=== PATIENT | male | born 1950 | race Caucasian/White ===

== ENCOUNTER 2019-11-11 13:25 | Emergency (ER) | payer OTHER ==
[~2019-11-11] VITALS: Ht 177.8 cm; Wt 125.2 kg
[~2019-11-11 13:25] MED LIST: ALBU2.5V5 NEB; ALBU90OI6 INH; ATORVASTATIN CA40 MG PO; B-12 COMPL1000 MCG/1 INJ; BUDE6HFA INH; FURO40 PO; IBU600 MG PO; Lisinopril2.5 MG PO; MONT10T PO; OMEPRAZOLE20 MG PO; POTCHL10ER PO; TAMS.4ER PO; TIOT18 INH; TRAM50 PO; Vitamin D2000 UNIT PO
== END 2019-11-11 16:22 | disposition home or self-care (01) ==
LOC: ER 13:25
DX: M54.5 Low back pain (principal); J44.9 Chronic obstructive pulmonary disease, unspecified; E78.5 Hyperlipidemia, unspecified; K21.9 Gastro-esophageal reflux disease without esophagitis; Z87.891 Personal history of nicotine dependence; Z79.899 Other long term (current) drug therapy; V89.2XXA Person injured in unspecified motor-vehicle accident, traffic, initial encounter
CPT/HCPCS: 72080; 99284-25

== ENCOUNTER 2020-08-17 12:25 | Inpatient (IN) | payer OTHER, MEDICARE ==
[~2020-08-17] VITALS: Ht 180.3 cm; Wt 126.2 kg
[~2020-08-17 12:25] MED LIST changes: -ALBU2.5V5 NEB; -ALBU90OI6 INH; -B-12 COMPL1000 MCG/1 INJ; -BUDE6HFA INH; -FURO40 PO; -POTCHL10ER PO
[2020-08-17 13:37] LABS: BASOPHILS ABSOLUTE AUTO 0.03 K/mm3 (0.00-0.23); BASOPHILS PERCENT AUTO 0 % (0-2); EOSINOPHILS ABSOLUTE AUTO 0.01 K/mm3 (0.00-0.68); EOSINOPHILS PERCENT AUTO 0 % (0-6); Hematocrit 39.9 % (37.0-53.0); Hemoglobin 12.8 g/dL (13.5-17.5); IMMATURE GRAN ABSOLUTE AUTO 0.05 K/mm3 (0.00-0.10); IMMATURE GRAN PERCENT AUTO 0 % (0-1); LYMPHOCYTES PERCENT AUTO 3 % (21-46); MONOCYTES ABSOLUTE AUTO 0.79 K/mm3 (0.16-1.47); MONOCYTES PERCENT AUTO 5 % (4-13); Mean Corpuscular HGB 29.8 pg (26.0-34.0); Mean Corpuscular HGB Conc 32.1 g/dL (31.5-36.5); Mean Corpuscular Volume 93 fL (80-100); Mean Platelet Volume 8.8 fL (9.1-12.4); NEUTROPHILS ABSOLUTE AUTO 13.34 K/mm3 (1.96-9.15); NEUTROPHILS PERCENT AUTO 91 % (41-73); Platelet Count 199 K/mm3 (150-400); RDW Coefficient Variation 13.3 % (11.7-14.2); RDW Standard Deviation 45.6 fL (35.1-46.3); White Blood Cell Count 14.72 K/mm3 (4.00-11.30)
[2020-08-17 13:56] LABS: Alanine Aminotransfer (ALT/SGP 22 U/L (12-78); Albumin, Blood 3.4 g/dL (3.4-5.0); Albumin/Globulin Ratio 1.1 (0.8-1.8); Alk Phos 114 U/L (50-136); Anion Gap 5 mmol/L (6-16); Aspartate Aminotrans (AST/SGOT 21 U/L (12-37); Bilirubin, Total 0.9 mg/dL (0.1-1.0); Blood Urea Nitrogen 15 mg/dL (8-24); Bun/Creatinine Ratio 18.8 (12.0-20.0); CO2, Blood 32 mmol/L (21-32); Calcium, Blood 8.6 mg/dL (8.5-10.1); Chloride, Blood 109 mmol/L (98-108); Globulin, Blood 3.1 g/dL (2.2-4.0); Glomerular Filtration Rate >60 (60-); Glucose, Blood 142 mg/dL (70-99); Potassium, Blood 3.4 mmol/L (3.5-5.5); Sodium, Blood 146 mmol/L (136-145); Total Protein, Blood 6.5 g/dL (6.4-8.2); Troponin I <0.015 ng/mL (0.000-0.040)
[2020-08-17 14:25] LABS: Source, Urine Clean Catch
[2020-08-17 14:33] LABS: Appearance, Urine Clear (Clear); Blood, Urine Neg (Neg); Color, Urine Amber (P-Yellow); Glucose Qualitative, Urine Neg (Neg); Ketones, Urine 1+ (Neg); Leukocyte Esterase, Urine 1+ (Neg); Nitrite, Urine Neg (Neg); Protein, Urine 1+ (Neg); Urobilinogen, Urine 2+ (Normal)
[2020-08-17 14:34] LABS: Bilirubin, Urine 1+ (Neg)
[2020-08-17 14:48] LABS: Mucus Heavy (0-Heavy); Squamous Epithelial Cells Few /hpf (Few)
[2020-08-17 14:49] LABS: Bacteria Few /hpf; Red Blood Cells, Urine 0-2 /hpf (0-2)
[2020-08-17 15:24] LABS: Influenza A, PCR Negative (NEGATIVE); Influenza B, PCR Negative (NEGATIVE); Resp Syncytial Virus, PCR Negative (NEGATIVE); SARS-Cov-2 (COVID-19) PCR, MMC Negative (NEGATIVE)
[2020-08-17] MEDS ORDERED: ALBU2.5V5 NEB (17:12)
[2020-08-17] MEDS ORDERED: ALBU90OI6 INH (17:56)
[2020-08-17] MEDS ORDERED: SYMBICORT 160-4.6 GM INH (17:57)
[2020-08-17] MEDS ORDERED: ATOR40TA PO (17:58)
[2020-08-17] MEDS ORDERED: VITAMIN D31000 UNI1 PO (17:58)
[2020-08-17] MEDS ORDERED: FURO40 PO (17:58)
[2020-08-17] MEDS ORDERED: OMEP20ER PO (17:59)
[2020-08-17] MEDS ORDERED: POTA10T PO (17:59)
[2020-08-17] MEDS ORDERED: Lisinopril2.5 MG PO (18:00)
[2020-08-17] MEDS ORDERED: MULVITA PO (18:00)
[2020-08-17] MEDS ORDERED: Sanctura20 MG PO (18:01)
[2020-08-17] MEDS ORDERED: B-12 COMPL1000 MCG/2 IM (18:24)
[2020-08-17] MEDS ORDERED: FEROSUL325 M1 PO (18:25)
[2020-08-17] MEDS ORDERED: MONT10T PO (18:25)
[2020-08-17] MEDS ORDERED: TIOT18 INH (18:26)
[2020-08-17] MEDS ORDERED: TAMS.4ER PO (18:26)
--- NOTE | 2020-08-17 18:35 | NUR ---
PT PLEASANT COOP A/O. TALKING. PAIN IN RT LEG, HEADACHE. WAS MEDIATED IN ER. H/R REG, NO MURMER NOTED. NO TELE. LUNGS CLEAR WITH LIGHT CRACKLES LOW LEFT. ON 2L O2. BT X4 LAST BM THIS AM. NORMAL. VOIDS URINAL. BSC IF NEEDS. CALL LITE IN REACH, CALLS APPROP BROUGHT WATER AND URINAL.
--- NOTE | 2020-08-18 04:35 | NUR ---
QUALITY ASSURANCE MONITOR BODY SUMMARY A/OX4. PT C/O PAIN X1 R/T RECENT FALL AT HOME, MEDICATED PER EMAR. COMPLIANT WITH CPAP, CONT. BIOX IN PLACE. APPEARED TO SLEEP T/O NIGHT. NO ACUTE CHANGES AT THIS TIME. BED IN LOWEST POSITON WITH CALL LIGHT IN REACH. WILL CONTINUE TO MONITOR AND REPORT TO ONCOMING RN.
[2020-08-18 05:14] LABS: BASOPHILS ABSOLUTE AUTO 0.03 K/mm3 (0.00-0.23); BASOPHILS PERCENT AUTO 0 % (0-2); EOSINOPHILS ABSOLUTE AUTO 0.07 K/mm3 (0.00-0.68); EOSINOPHILS PERCENT AUTO 1 % (0-6); Hematocrit 35.4 % (37.0-53.0); Hemoglobin 11.3 g/dL (13.5-17.5); IMMATURE GRAN ABSOLUTE AUTO 0.07 K/mm3 (0.00-0.10); IMMATURE GRAN PERCENT AUTO 1 % (0-1); LYMPHOCYTES ABSOLUTE AUTO 1.09 K/mm3 (0.84-5.20); LYMPHOCYTES PERCENT AUTO 8 % (21-46); MONOCYTES ABSOLUTE AUTO 0.87 K/mm3 (0.16-1.47); MONOCYTES PERCENT AUTO 7 % (4-13); Mean Corpuscular HGB 30.1 pg (26.0-34.0); Mean Corpuscular HGB Conc 31.9 g/dL (31.5-36.5); Mean Corpuscular Volume 94 fL (80-100); Mean Platelet Volume 9.1 fL (9.1-12.4); NEUTROPHILS ABSOLUTE AUTO 11.25 K/mm3 (1.96-9.15); NEUTROPHILS PERCENT AUTO 84 % (41-73); Platelet Count 163 K/mm3 (150-400); RDW Coefficient Variation 13.8 % (11.7-14.2); RDW Standard Deviation 46.8 fL (35.1-46.3); Red Blood Cell Count 3.76 M/mm3 (4.30-5.90); White Blood Cell Count 13.38 K/mm3 (4.00-11.30)
[2020-08-18 05:39] LABS: Alanine Aminotransfer (ALT/SGP 16 U/L (12-78); Albumin, Blood 2.9 g/dL (3.4-5.0); Alk Phos 94 U/L (50-136); Anion Gap 3 mmol/L (6-16); Aspartate Aminotrans (AST/SGOT 14 U/L (12-37); Bilirubin, Total 0.9 mg/dL (0.1-1.0); Blood Urea Nitrogen 12 mg/dL (8-24); Bun/Creatinine Ratio 17.9 (12.0-20.0); CO2, Blood 31 mmol/L (21-32); Calcium, Blood 8.5 mg/dL (8.5-10.1); Chloride, Blood 111 mmol/L (98-108); Creatinine, Blood 0.67 mg/dL (0.60-1.20); Globulin, Blood 2.8 g/dL (2.2-4.0); Glomerular Filtration Rate >60 (60-); Glucose, Blood 121 mg/dL (70-99); Potassium, Blood 3.4 mmol/L (3.5-5.5); Sodium, Blood 145 mmol/L (136-145); Total Protein, Blood 5.7 g/dL (6.4-8.2)
--- NOTE | 2020-08-18 08:00 | NUR ---
DR COLON IN TO SEE PT. STATES WILL REVIEW AND OBTAIN MEDS PER MED REC. PT ASKED FOR HIS PAIN MEDS.
--- NOTE | 2020-08-18 10:00 | NUR ---
PT PLEASANT COOP A/P TALKATIVE. 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 ALSO . H/R REG, NO MURMER NOTED. NO TELE. LUNGS CLEAR ON RT AND DIM LOW LEFT. ON 2L O2. RESP EASY, UNLABORED. BT X4 LAST BM YEST. VOIDS URINAL. STATES WEAK ON RT NINO AND PAIN IN LEG AT KNEE. DOES HAVE NEUROPATHY. SPOKE TO DR COLON. NO NEW CONCERNS. BED IN LOW POSITIOIN, CALL LITE IN REACH, CALLS APPROP
--- NOTE | 2020-08-18 11:48 | NUR ---
PT STATES TAKES TRAMADOL FOR PAIN. UNSURE OF DOSE. WILL HAVE CHECK AND CALL ME.
--- NOTE | 2020-08-18 18:14 | NUR ---
PT PLEASANT TALKATIVE. A/O X3 TODAY AND KIDDING STAFF. CAME IN TO SEE HIM TODAY. NO NEW CONCERNS TODAY. PT RECEIVING ABX. PER EMAR. SITTING ON EDGE OF BED MUCH OF DAY. DID START HIS NORMAL MEDS TODAY. BED IN LOW POSITION, CALL LITE IN REACH, CALLS APPROP
--- NOTE | 2020-08-19 04:51 | NUR ---
SUMMARY: A/OX4, CALLS APPROPRIATELY AND PT IS PLEASANT/COOPERATIVE W/CARE. HE'S RECIEVING IV ABX FOR PNM W/LS DIMINISHED T/O AND SPO2 WNL ON 3L O2 PER HOME DOSE. PT TOLERATED CPAP AT HS W/CONTIUOUS BIOX INTACT. HE'S USING HIS URINAL TO VOID AND IS ABLE TO USE BSC W/1P PIVOT T/F ASSIST. HE REMAINS VERY WEAK IN BLE'S AND REPORTS R.KNEE PAIN, TRAMADOL RECIEVED AT HS FOR IMPROVED PAIN CONTROL. HE SLEPT INTERMITTENTLY T/O NOCTE W/O COMPLAINTS. NO ACUTE CHANGES, VSS/AFEBRILE. WCTM AND REPORT TO DAY RN.
[2020-08-19] MEDS ORDERED: ACET325 PO (12:11)
[2020-08-19] MEDS ORDERED: CEFP200 PO (12:12)
[2020-08-19] MEDS ORDERED: Florastor250 MG PO (12:13)
--- NOTE | 2020-08-19 15:30 | NUR ---
DISCHARGE SUMMARY RAY LEFT W/ FAMILY BY WC. PIV REMOVED AFTER GETTING LAST DOSE OF AZITHROMAX. TACHYCARDIC ON TELE, GOT EKG PRIOR TO LEAVING SHOWING SINUS TACH. UNABLE TO MAKE FU APPT AT [facility] DESPITE ATTEMPTS, PT VERBALIZED UNDERSTANDING FOR NEED FOR F/U APPT AND HE STATES HE WILL CONTINUE TO TRY TO CALL THEM. R KNEE VERY PAINFUL FOR PT, RECEIVED TRAMADOL X1 DOSE. HOME O2 EVAL SHOWED PT DIDN'T NEED HOME OXYGEN. MEDS FAXED TO [facility], WENT OVER PAPERWORK WITH PT.
== END 2020-08-19 15:26 | disposition home or self-care (01) | DRG 871 ==
LOC: ER 12:25 → ERHOLD 14:29 → MEDS 18:12 → ENPENDDIS 08-19 11:59 → MEDS 08-19 15:26
PROVIDERS: Emergency Medicine; ADMIT Hospitalist
DX: A41.9 Sepsis, unspecified organism (principal); J96.01 Acute respiratory failure with hypoxia; J18.9 Pneumonia, unspecified organism; J44.0 Chronic obstructive pulmonary disease with (acute) lower respiratory infection; I50.32 Chronic diastolic (congestive) heart failure; Z20.828 Contact with and (suspected) exposure to other viral communicable diseases; I25.10 Atherosclerotic heart disease of native coronary artery without angina pectoris; D51.9 Vitamin B12 deficiency anemia, unspecified; Z98.84 Bariatric surgery status; Z87.891 Personal history of nicotine dependence; N40.0 Benign prostatic hyperplasia without lower urinary tract symptoms; K21.9 Gastro-esophageal reflux disease without esophagitis; E66.9 Obesity, unspecified; Z68.38 Body mass index [BMI] 38.0-38.9, adult
CPT/HCPCS: 0241U; 36415; 71045; 80053; 81001; 83605; 83690; 84145; 84484; 85025; 87040; 87070; 87086; 87205; 93005; 93010; 94640; 94660; 94760; 94761; 94762; 96365; 96366; 96367; 96375; 99285-25; A9270; A9270-GY; J0456; J0696; J2405; J7030; J7050

== ENCOUNTER 2020-10-04 13:11 | Day surgery (SDC) | payer OTHER ==
[~2020-10-04] VITALS: Ht 177.8 cm; Wt 129.8 kg
[~2020-10-04 13:11] MED LIST changes: +ACET325 PO; +ALBU2.5V5 NEB; +ALBU90OI6 INH; +ATOR40TA PO; +B-12 COMPL1000 MCG/2 IM; +CEFP200 PO; +FEROSUL325 M1 PO; +FURO40 PO; +Hair, Skin & N1 EACH PO; +OMEP20ER PO; +POTA10T PO; +SYMBICORT 160-4.6 GM INH; +Sanctura20 MG PO; +VITAMIN D31000 UNI1 PO
== END 2020-10-04 18:31 | disposition home or self-care (01) ==
LOC: ORSCSDS 13:11
PROVIDERS: Internal Medicine Gastroenterology
PROC: 0DBK8ZX Excision of Ascending Colon, Via Natural or Artificial Opening Endoscopic, Diagnostic (ICD-10-PCS; principal; 2020-10-04 14:30)
PROC: 0DBL8ZX Excision of Transverse Colon, Via Natural or Artificial Opening Endoscopic, Diagnostic (ICD-10-PCS; principal; 2020-10-04 14:30)
PROC: 0DBN8ZX Excision of Sigmoid Colon, Via Natural or Artificial Opening Endoscopic, Diagnostic (ICD-10-PCS; principal; 2020-10-04 14:30)
PROC: 0DBH8ZX Excision of Cecum, Via Natural or Artificial Opening Endoscopic, Diagnostic (ICD-10-PCS; principal; 2020-10-04 14:30)
PROC: 0DBM8ZX Excision of Descending Colon, Via Natural or Artificial Opening Endoscopic, Diagnostic (ICD-10-PCS; principal; 2020-10-04 14:30)
DX: Z86.010 Personal history of colon polyps (principal); D12.3 Benign neoplasm of transverse colon; D12.5 Benign neoplasm of sigmoid colon; D12.0 Benign neoplasm of cecum; D12.2 Benign neoplasm of ascending colon; D12.4 Benign neoplasm of descending colon; K57.30 Diverticulosis of large intestine without perforation or abscess without bleeding; K64.8 Other hemorrhoids; G47.33 Obstructive sleep apnea (adult) (pediatric); I10 Essential (primary) hypertension; J44.9 Chronic obstructive pulmonary disease, unspecified; Z87.891 Personal history of nicotine dependence; K21.9 Gastro-esophageal reflux disease without esophagitis; E78.00 Pure hypercholesterolemia, unspecified; Z79.899 Other long term (current) drug therapy
CPT/HCPCS: 82947; 88305; A9270; J2250; J2405; J2704; J2765; J7040; J7120

== ENCOUNTER 2021-02-20 14:17 | Observation (INO) | payer OTHER ==
[~2021-02-20] VITALS: Ht 177.8 cm; Wt 128.7 kg
[2021-02-20 14:55] LABS: BASOPHILS ABSOLUTE AUTO 0.02 K/mm3 (0.00-0.23); BASOPHILS PERCENT AUTO 0 % (0-2); EOSINOPHILS ABSOLUTE AUTO 0.09 K/mm3 (0.00-0.68); EOSINOPHILS PERCENT AUTO 1 % (0-6); IMMATURE GRAN ABSOLUTE AUTO 0.03 K/mm3 (0.00-0.10); IMMATURE GRAN PERCENT AUTO 0 % (0-1); LYMPHOCYTES ABSOLUTE AUTO 1.59 K/mm3 (0.84-5.20); LYMPHOCYTES PERCENT AUTO 17 % (21-46); MONOCYTES PERCENT AUTO 5 % (4-13); Mean Corpuscular HGB 28.8 pg (26.0-34.0); Mean Corpuscular HGB Conc 32.5 g/dL (31.5-36.5); Mean Corpuscular Volume 89 fL (80-100); Mean Platelet Volume 8.8 fL (9.1-12.4); NEUTROPHILS PERCENT AUTO 76 % (41-73); Platelet Count 252 K/mm3 (150-400); RDW Coefficient Variation 14.4 % (11.7-14.2); RDW Standard Deviation 46.3 fL (35.1-46.3); Red Blood Cell Count 4.52 M/mm3 (4.30-5.90); White Blood Cell Count 9.43 K/mm3 (4.00-11.30)
[2021-02-20 15:15] LABS: Alanine Aminotransfer (ALT/SGP 26 U/L (12-78); Albumin, Blood 3.5 g/dL (3.4-5.0); Albumin/Globulin Ratio 1.1 (0.8-1.8); Alk Phos 113 U/L (50-136); Anion Gap 5 mmol/L (6-16); Aspartate Aminotrans (AST/SGOT 15 U/L (12-37); Bilirubin, Total 0.7 mg/dL (0.1-1.0); Blood Urea Nitrogen 17 mg/dL (8-24); Bun/Creatinine Ratio 20.9 (12.0-20.0); CO2, Blood 27 mmol/L (21-32); Calcium, Blood 8.3 mg/dL (8.5-10.1); Chloride, Blood 104 mmol/L (98-108); Creatinine, Blood 0.81 mg/dL (0.60-1.20); Globulin, Blood 3.2 g/dL (2.2-4.0); Glomerular Filtration Rate >60 (60-); Glucose, Blood 107 mg/dL (70-99); HDL Cholesterol 31 mg/dL (>39); Potassium, Blood 3.6 mmol/L (3.5-5.5); Sodium, Blood 136 mmol/L (136-145); Total Protein, Blood 6.7 g/dL (6.4-8.2); Troponin I <0.015 ng/mL (0.000-0.040)
[2021-02-20] MEDS ORDERED: TRAM50 PO (16:27)
[2021-02-20] MEDS ORDERED: Florastor250 MG PO (16:28)
[2021-02-20] MEDS ORDERED: IBUP600 PO (16:28)
[2021-02-20] MEDS ORDERED: MIRALAX17 GM PO (16:29)
[2021-02-20] MEDS ORDERED: CALCIUM CARBON650 MG PO (16:30)
[2021-02-20] MEDS ORDERED: ALEN10 PO (16:31)
[2021-02-20] MEDS ORDERED: CAPSAICIN 0.075% TOP (16:32)
[2021-02-20 18:53] LABS: CPK Creatine Kinase 84 U/L (39-308)
--- NOTE | 2021-02-21 04:02 | NUR ---
SHIFT SUMMARY PT ER ADMIT THIS SHIFT FOR CHEST PAIN. PT HAS NO COMPLAINTS OF CHEST PAIN SINCE ARRIVING TO THE UNIT. PT IS NSR ON TELE. R/U ON RA, NO COMPLAINTS OF N/V. VITALS ARE STABLE. OBS STATUS TO R/O ACS. NO ACUTE CHANGES SINCE ADMISSION. PT A/OX4, INDEPENDENT IN THE ROOM. BED IN LOWEST POSITION, CALL LIGHT WITHIN REACH.
[2021-02-21 06:33] LABS: BASOPHILS ABSOLUTE AUTO 0.03 K/mm3 (0.00-0.23); BASOPHILS PERCENT AUTO 0 % (0-2); EOSINOPHILS ABSOLUTE AUTO 0.12 K/mm3 (0.00-0.68); EOSINOPHILS PERCENT AUTO 2 % (0-6); Hematocrit 37.2 % (37.0-53.0); Hemoglobin 12.1 g/dL (13.5-17.5); IMMATURE GRAN ABSOLUTE AUTO 0.02 K/mm3 (0.00-0.10); IMMATURE GRAN PERCENT AUTO 0 % (0-1); LYMPHOCYTES ABSOLUTE AUTO 1.26 K/mm3 (0.84-5.20); LYMPHOCYTES PERCENT AUTO 19 % (21-46); MONOCYTES ABSOLUTE AUTO 0.47 K/mm3 (0.16-1.47); MONOCYTES PERCENT AUTO 7 % (4-13); Mean Corpuscular HGB 29.2 pg (26.0-34.0); Mean Corpuscular HGB Conc 32.5 g/dL (31.5-36.5); Mean Corpuscular Volume 90 fL (80-100); Mean Platelet Volume 8.9 fL (9.1-12.4); NEUTROPHILS ABSOLUTE AUTO 4.86 K/mm3 (1.96-9.15); NEUTROPHILS PERCENT AUTO 72 % (41-73); Platelet Count 189 K/mm3 (150-400); RDW Coefficient Variation 14.6 % (11.7-14.2); RDW Standard Deviation 47.6 fL (35.1-46.3); Red Blood Cell Count 4.15 M/mm3 (4.30-5.90); White Blood Cell Count 6.76 K/mm3 (4.00-11.30)
[2021-02-21 06:53] LABS: Alanine Aminotransfer (ALT/SGP 21 U/L (12-78); Albumin, Blood 3.2 g/dL (3.4-5.0); Albumin/Globulin Ratio 1.1 (0.8-1.8); Alk Phos 99 U/L (50-136); Anion Gap 2 mmol/L (6-16); Aspartate Aminotrans (AST/SGOT 12 U/L (12-37); Bilirubin, Total 0.8 mg/dL (0.1-1.0); Blood Urea Nitrogen 20 mg/dL (8-24); Bun/Creatinine Ratio 22.1 (12.0-20.0); CO2, Blood 32 mmol/L (21-32); Chloride, Blood 104 mmol/L (98-108); Globulin, Blood 2.9 g/dL (2.2-4.0); Glomerular Filtration Rate >60 (60-); Glucose, Blood 111 mg/dL (70-99); Potassium, Blood 3.6 mmol/L (3.5-5.5); Sodium, Blood 138 mmol/L (136-145); Total Protein, Blood 6.1 g/dL (6.4-8.2)
[2021-02-21 06:54] LABS: CPK Creatine Kinase 65 U/L (39-308); Troponin I <0.015 ng/mL (0.000-0.040)
--- NOTE | 2021-02-21 15:52 | NUR ---
Shift Summary A/Ox3, pleasant and cooperative with care. Patient had resting portion of stress test completed today. Up with SBA. at bedside during visiting hours. Home medication brought in and sent to pharmacy for labeling. Denies chest pain, nausea, vomiting. Appetite is good. Blood sugars stable. Tele: SR 79. Patient to be NPO except water after midnight, hold breakfast tray until after second portion of stress test completed in AM. WCTM.
--- NOTE | 2021-02-22 05:57 | NUR ---
SHIFT SUMMARY PATIENT ALERT AND ORIENTED. HAD NO COMPLAINTS OF CHEST PAIN OR SHORTNESS OF BREATH OVERNIGHT. PATIENT SLEPT WELL AND HAD MINIMAL NEEDS. NO ACUTE ISSUES NOTED. IV PATENT AND FLUSHED. BED IN LOWEST POSITION WITH WHEELS LOCKED. CALL LIGHT WITHIN REACH. REPORT GIVEN TO ONCOMING RN.
--- NOTE | 2021-02-22 14:22 | NUR ---
Discharge Summary A/Ox4, discharging to home. Reviewed discharge paperwork with patient. No new meds. Follow up appointment already established per patient. Copy of d/c papers given. Escorted by VOCATIONAL TRAINING DIRECTOR via w/c. Personal belongings sent home. No questions. Tele: SR 91. Second portion of stress test completed today.
== END 2021-02-22 14:20 | disposition home or self-care (01) ==
LOC: ER 14:17 → MEDS 14:18
PROVIDERS: Emergency Medicine; ADMIT Internal Medicine
DX: R07.89 Other chest pain (principal); I25.10 Atherosclerotic heart disease of native coronary artery without angina pectoris; J44.9 Chronic obstructive pulmonary disease, unspecified; I25.2 Old myocardial infarction; E11.9 Type 2 diabetes mellitus without complications; I50.32 Chronic diastolic (congestive) heart failure; D64.9 Anemia, unspecified; E53.8 Deficiency of other specified B group vitamins; K21.9 Gastro-esophageal reflux disease without esophagitis; C61 Malignant neoplasm of prostate; E66.9 Obesity, unspecified; Z68.41 Body mass index [BMI] 40.0-44.9, adult; Z88.5 Allergy status to narcotic agent; Z87.891 Personal history of nicotine dependence
CPT/HCPCS: 36415; 71045; 78452; 80053; 82550; 82947; 83718; 84484; 85025; 85379; 93005; 93010; 93017; 94640; 94664; 94760; 96372; 96374; 99285-25; A9270; A9500; G0378; J0706; J1650; J2405; J2785; J3010

== ENCOUNTER 2021-04-03 10:31 | Day surgery (SDC) | payer OTHER ==
[~2021-04-03] VITALS: Ht 177.8 cm; Wt 130.8 kg
[~2021-04-03 10:31] MED LIST changes: +ALEN10 PO; +CALCIUM CARBON650 MG PO; +CAPSAICIN 0.075% TOP; +Florastor250 MG PO; +IBUP600 PO; +MIRALAX17 GM PO
--- NOTE | 2021-04-03 11:30 | NUR ---
04/03/21 1130 Nneka Flowers PLEDGET PLACED AT [address] ORDERS. TETRACAINE DROP PLACED AT [address] ORDERS.
== END 2021-04-03 12:29 | disposition home or self-care (01) ==
LOC: ORSCSDS 10:31
PROVIDERS: Ophthalmology
PROC: 08RK3JZ Replacement of Left Lens with Synthetic Substitute, Percutaneous Approach (ICD-10-PCS; principal; 2021-04-03 13:15)
DX: H25.12 Age-related nuclear cataract, left eye (principal); H21.81 Floppy iris syndrome; I10 Essential (primary) hypertension; J44.9 Chronic obstructive pulmonary disease, unspecified; Z87.891 Personal history of nicotine dependence; E11.9 Type 2 diabetes mellitus without complications; E66.01 Morbid (severe) obesity due to excess calories; Z68.41 Body mass index [BMI] 40.0-44.9, adult; Z79.899 Other long term (current) drug therapy
CPT/HCPCS: J2001; J2250; J3010; J3301; J7040; V2632

== ENCOUNTER 2021-04-24 08:29 | Day surgery (SDC) | payer OTHER ==
[~2021-04-24] VITALS: Ht 177.8 cm; Wt 134.3 kg
--- NOTE | 2021-04-24 08:53 | NUR ---
04/24/21 0853 Kristi Bowers TETRACAINE DROP AND PLEDGET PLACED IN TIGH EYE BY [facility].HIEU.
== END 2021-04-24 10:20 | disposition home or self-care (01) ==
LOC: ORSCSDS 08:29
PROVIDERS: Ophthalmology
PROC: 08RJ3JZ Replacement of Right Lens with Synthetic Substitute, Percutaneous Approach (ICD-10-PCS; principal; 2021-04-24 10:00)
DX: H25.11 Age-related nuclear cataract, right eye (principal); H21.81 Floppy iris syndrome; I10 Essential (primary) hypertension; E11.9 Type 2 diabetes mellitus without complications; E66.01 Morbid (severe) obesity due to excess calories; Z68.41 Body mass index [BMI] 40.0-44.9, adult; Z79.899 Other long term (current) drug therapy
CPT/HCPCS: J2001; J2250; J3010; J3301; J7040; V2632

== ENCOUNTER 2022-09-17 13:12 | Inpatient (IN) | payer OTHER ==
[~2022-09-17] VITALS: Ht 177.8 cm; Wt 118.8 kg
[2022-09-17 14:23] LABS: BASOPHILS ABSOLUTE AUTO 0.02 K/mm3 (0.00-0.23); BASOPHILS PERCENT AUTO 0 % (0-2); EOSINOPHILS ABSOLUTE AUTO 0.01 K/mm3 (0.00-0.68); EOSINOPHILS PERCENT AUTO 0 % (0-6); Hematocrit 37.9 % (37.0-53.0); Hemoglobin 12.6 g/dL (13.5-17.5); IMMATURE GRAN ABSOLUTE AUTO 0.07 K/mm3 (0.00-0.10); IMMATURE GRAN PERCENT AUTO 1 % (0-1); LYMPHOCYTES PERCENT AUTO 3 % (21-46); MONOCYTES ABSOLUTE AUTO 0.71 K/mm3 (0.16-1.47); MONOCYTES PERCENT AUTO 5 % (4-13); Mean Corpuscular HGB 30.5 pg (26.0-34.0); Mean Corpuscular HGB Conc 33.2 g/dL (31.5-36.5); Mean Corpuscular Volume 92 fL (80-100); NEUTROPHILS ABSOLUTE AUTO 14.01 K/mm3 (1.96-9.15); NEUTROPHILS PERCENT AUTO 91 % (41-73); Platelet Count 210 K/mm3 (150-400); RDW Coefficient Variation 14.9 % (11.7-14.2); RDW Standard Deviation 50.5 fL (35.1-46.3); Red Blood Cell Count 4.13 M/mm3 (4.30-5.90); White Blood Cell Count 15.32 K/mm3 (4.00-11.30)
[2022-09-17 15:10] LABS: Albumin, Blood 3.5 g/dL (3.4-5.0); Bilirubin, Total 1.1 mg/dL (0.1-1.0); Bun/Creatinine Ratio 16.6 (12.0-20.0); Calcium, Blood 8.7 mg/dL (8.5-10.1); Creatinine, Blood 0.96 mg/dL (0.60-1.20); Globulin, Blood 3.6 g/dL (2.2-4.0); Potassium, Blood 4.3 mmol/L (3.5-5.5); Total Protein, Blood 7.1 g/dL (6.4-8.2)
[2022-09-17 15:19] LABS: Influenza A, PCR NEGATIVE (NEGATIVE); Influenza B, PCR NEGATIVE (NEGATIVE); SARS-Cov-2 (COVID-19) PCR, MMC NEGATIVE (NEGATIVE)
[2022-09-17 15:21] LABS: Resp Syncytial Virus, PCR POSITIVE (NEGATIVE)
[2022-09-17 16:21] LABS: Source, Urine Clean Catch
[2022-09-17 16:23] LABS: Appearance, Urine Clear (Clear); Bilirubin, Urine Neg (Neg); Blood, Urine Neg (Neg); Color, Urine Yellow (P-Yellow); Glucose Qualitative, Urine Neg (Neg); Ketones, Urine Neg (Neg); Leukocyte Esterase, Urine Neg (Neg); Nitrite, Urine Neg (Neg); Protein, Urine Neg (Neg); Urobilinogen, Urine NORM (Normal)
--- NOTE | 2022-09-17 18:44 | NUR ---
NOTES: PATIENT ARRIVED TO ROOM AT 1730 VIA WHEELCHAIR FROM ER ADMITT. PATIENT ORIENTATED TO ROOM AND CALL SYSTEM. ASSESSMENT AND ADMISSION COMPLETE. SKIN ASSESSMENT c 2 RN VERIFICATION COMPLETE. NOTED BRUISING TO BUE SCATTERED T/O. PATIENT A&OX4. SLIGHTLY [place] AND DOES NOT WEAR HEARING AID. WEARS PRESCRIPTION GLASSES. PATIENT ADMITTED c DX OF RSV POSITIVE. PATIENT ON DROPLET ISOLATION. IV TO R AC INFUSING NS AT 75 MLS/HR. USES URINAL AT BEDSIDE INDEPENDENTLY. VITAL SIGNS REVIEWED. PATIENT IS DNR c PURPLE ARM BAND TO L WRIST. BED ALARM ON FOR SAFETY. CALL LIGHT IN REACH.
[2022-09-18 06:16] LABS: Hematocrit 32.6 % (37.0-53.0); Hemoglobin 10.9 g/dL (13.5-17.5); Mean Corpuscular HGB 30.2 pg (26.0-34.0); Mean Corpuscular HGB Conc 33.4 g/dL (31.5-36.5); Mean Corpuscular Volume 90 fL (80-100); Mean Platelet Volume 8.6 fL (9.1-12.4); Platelet Count 165 K/mm3 (150-400); RDW Coefficient Variation 15.1 % (11.7-14.2); Red Blood Cell Count 3.61 M/mm3 (4.30-5.90); White Blood Cell Count 8.95 K/mm3 (4.00-11.30)
[2022-09-18 06:39] LABS: Calcium, Blood 8.6 mg/dL (8.5-10.1); Creatinine, Blood 0.88 mg/dL (0.60-1.20); Magnesium, Blood 2.4 mg/dL (1.6-2.4); Potassium, Blood 3.7 mmol/L (3.5-5.5)
--- NOTE | 2022-09-18 18:20 | NUR ---
PATIENT DID WELL TODAY, TOLERATING REMOVAL OF HIS OXYGEN. HE IS AT 95 % ON ROOM AIR AT THIS TIME. NO IV ACCESS IS NEEDED- INFILTRATED AND THE PROVIDER WAS NOTIFIED, APPROVING NO ACCESS. PATIENT USING URINAL, INDEPENDENTLY. EATING MEALS. COOPERATIVE WITH CARE. VISITED WITH FAMILY THIS SHIFT.
--- NOTE | 2022-09-19 05:59 | NUR ---
NEURO AOX4, declines dizziness or photophobia. Interacts and coommnicates appropriately. Pupils PERRLA, sclera white 4mm-brisk. Declines headache RESP On room air prior to bedtime. CPAP with 2L NC utilized through the night. Lung sounds coarse bilateral lower lobes, no wheezing audible. Denies SOB CARDIAC Heart sound auscutated S1,S2 - no adventious sounds, regular. Pulses palpable strong bilateral radial and pedal sites. +1 Edema noted bilateral LE. GI Abdomen soft, contour symmetrical and non-distended. Bowel sounds audible. No tenderness. Diet is ADA carb-control and tolerating well. No BM during shift. Voids using urinal, denies pain with urination. Urine clear yellow Skin no skin issues
--- NOTE | 2022-09-19 11:40 | NUR ---
CALLED DR LEONG- PT SBP 109 THIS MORNING, HE STATED THAT IS LOW FOR HIM. HE REQUESTED TO NOT RECIEVE HIS BP MEDS. DR LEONG AWARE. OK TO HOLD.
--- NOTE | 2022-09-19 12:30 | NUR ---
PT O2 SATS- PT HAS BEEN ON ROOM AIR ALL SHIFT. WHEN THE DOCTOR WAS AT THE BEDSIDE THE PT GOT UP AND AMBULATED AROUND THE ROOM AND THEN AMBULATED IN PLACE FOR THE DOCTOR O2 SATS MONITORED ON CONT PULSE OX SHOWED SATS NEVER DROPPED BELOW 91%. PLANS TO DC THE PT HOME THIS SHIFT.
[2022-09-19] MEDS ORDERED: Acetaminophen325 M1 PO (13:16)
--- NOTE | 2022-09-19 14:26 | NUR ---
discharge note- pt was given verbal and written discharge instructions and acknowledged understanding of them. Pt was escorted out via w/c by the rental agent. No s&s of distress noted at the time of discharge.
== END 2022-09-19 14:30 | disposition home or self-care (01) | DRG 189 ==
LOC: ER 13:12 → MEDS 16:19
PROVIDERS: Emergency Medicine; Nurse Practitioner Acute Care; ADMIT Internal Medicine
DX: J96.01 Acute respiratory failure with hypoxia (principal); J21.0 Acute bronchiolitis due to respiratory syncytial virus; I50.32 Chronic diastolic (congestive) heart failure; J44.0 Chronic obstructive pulmonary disease with (acute) lower respiratory infection; J98.11 Atelectasis; E11.9 Type 2 diabetes mellitus without complications; Z20.822 Contact with and (suspected) exposure to COVID-19; Z66 Do not resuscitate; K21.9 Gastro-esophageal reflux disease without esophagitis; I25.10 Atherosclerotic heart disease of native coronary artery without angina pectoris; D51.9 Vitamin B12 deficiency anemia, unspecified; D50.9 Iron deficiency anemia, unspecified; I11.0 Hypertensive heart disease with heart failure; E78.5 Hyperlipidemia, unspecified; N40.0 Benign prostatic hyperplasia without lower urinary tract symptoms; G47.33 Obstructive sleep apnea (adult) (pediatric); Z92.3 Personal history of irradiation; Z85.46 Personal history of malignant neoplasm of prostate; Z90.49 Acquired absence of other specified parts of digestive tract; Z98.84 Bariatric surgery status; Z98.890 Other specified postprocedural states; Z88.8 Allergy status to other drugs, medicaments and biological substances; Z88.5 Allergy status to narcotic agent; Z87.891 Personal history of nicotine dependence; Z90.79 Acquired absence of other genital organ(s); Z79.899 Other long term (current) drug therapy
CPT/HCPCS: 0241U; 36415; 71046; 80048; 80053; 81003; 82947; 83605; 83735; 83880; 84145; 84484; 85025; 85027; 87040; 93005; 93010; 94640; 94660; 94664; 94760; 94762; 96365; 96375; 99285-25; A9270; J0456; J0696; J1650; J7030; J7050

== ENCOUNTER 2023-02-10 12:46 | Day surgery (SDC) | payer OTHER ==
[~2023-02-10] VITALS: Ht 172.7 cm; Wt 119.9 kg
[2023-02-10] VITALS (22 sets, daily range): BP systolic 101–128; BP diastolic 60–83
[~2023-02-10 12:46] MED LIST changes: +Acetaminophen325 M1 PO
[2023-02-10] MEDS ORDERED: IBUP600 PO (13:28)
--- NOTE | 2023-02-10 13:41 | NUR ---
PT'S LEFT LUNG SOUNDS DIMINISHED AND WHEEZES THROUGHOUT, R LUNG SOUNDS DIMINISHED THROUGHOUT AND WHEEZES IN RUL.
--- NOTE | 2023-02-10 14:06 | NUR ---
02/10/23 1406 Medina Mcnulty HISTORY,CHART, MEDICATIONS AND ALLERGIES REVIEWED BEFORE START OF PROCEDURE. PATIENT CONFIRMS NPO STATUS AND AGREES WITH SCHEDULED PROCEDURE. 3-LEAD EKG REVIEWED WITH PHYSICIAN PRIOR TO START OF PROCEDURE. MONITOR INTACT WITH CONTINUOUS PULSE OXIMETRY, 3-LEAD EKG, CAPNOGRAPHY AND INTERMITTENT BP. SUPPLEMENTAL O2 TO BE TITRATED THROUGHOUT PROCEDURE TO MAINTAIN O2 SATURATION ABOVE 90%. PATIENT DETERMINED TO BE ASA APPROPRIATE FOR MODERATE SEDATION PRIOR TO START OF PROCEDURE BY DR. GARCIA. 2% LIDOCAINE JELLY WITH 5 DROPS SWETHA-SYNEPHRINE 0.5% APPLIED TO BILATERAL NARES WITH COTTON TIP APPLICATOR. 2% LIDOCAINE SOLUTION SPRAYED TO OROPHARYNX USING ATOMIZATION DEVICE UNTIL GAG REFLEX GONE.
--- NOTE | 2023-02-10 16:40 | NUR ---
Patient up to Ambulate independently. Gait steady STAND BY ASSIST. Discharge instructions reviewed with patient. Patient verbalizes understanding. Copy given to patient to take home. Discharged via wheelchair to private car for ride home WITH . DISCHARGE INST, PERSONAL CELL PHONE AND PUPPET ENGINEER WITH PT AT DISCHARGE. GAG REFLEX INTACT. TOLERATING WATER.
== END 2023-02-10 22:51 | disposition home or self-care (01) ==
LOC: ORSCMMR 12:46 → ORD 14:00 → ORSCMMR 22:51
PROVIDERS: Internal Medicine Critical Care Medicine
PROC: 0B9D8ZX Drainage of Right Middle Lung Lobe, Via Natural or Artificial Opening Endoscopic, Diagnostic (ICD-10-PCS; principal; 2023-02-10 14:00)
DX: J98.11 Atelectasis (principal); R91.8 Other nonspecific abnormal finding of lung field; J45.909 Unspecified asthma, uncomplicated; G47.33 Obstructive sleep apnea (adult) (pediatric); Z79.899 Other long term (current) drug therapy; J43.9 Emphysema, unspecified; I10 Essential (primary) hypertension; Z85.46 Personal history of malignant neoplasm of prostate; Z87.891 Personal history of nicotine dependence
CPT/HCPCS: 82947; 87070; 87205; 88108; A9270; J0171; J2250; J3010; J7120

== ENCOUNTER 2023-06-11 17:12 | Inpatient (IN) | payer OTHER ==
[~2023-06-11] VITALS: Ht 177.8 cm; Wt 117.1 kg
--- NOTE | 2023-06-11 21:45 | NUR ---
NEW ADMIT PT TRANSFERED FROM ED TO ROOM 338 BY TOMMY. PT TRANSFERED FROM [facility] WITH SLIDE SHEET AND 4 PERSON ASSIST. PT ARRIVED ON RA. PT IS ALERT AND ORIENTED.
[2023-06-11 21:48] VITALS: BP 115/74
[2023-06-12] VITALS (18 sets, daily range): BP systolic 101–138; BP diastolic 52–84
[2023-06-12 05:25] LABS: BASOPHILS ABSOLUTE AUTO 0.04 K/mm3 (0.00-0.23); BASOPHILS PERCENT AUTO 0 % (0-2); EOSINOPHILS ABSOLUTE AUTO 0.16 K/mm3 (0.00-0.68); EOSINOPHILS PERCENT AUTO 1 % (0-6); Hematocrit 34.6 % (37.0-53.0); Hemoglobin 11.6 g/dL (13.5-17.5); IMMATURE GRAN ABSOLUTE AUTO 0.05 K/mm3 (0.00-0.10); IMMATURE GRAN PERCENT AUTO 0 % (0-1); LYMPHOCYTES ABSOLUTE AUTO 1.23 K/mm3 (0.84-5.20); LYMPHOCYTES PERCENT AUTO 10 % (21-46); MONOCYTES ABSOLUTE AUTO 0.93 K/mm3 (0.16-1.47); MONOCYTES PERCENT AUTO 8 % (4-13); Mean Corpuscular HGB 30.2 pg (26.0-34.0); Mean Corpuscular HGB Conc 33.5 g/dL (31.5-36.5); Mean Corpuscular Volume 90 fL (80-100); Mean Platelet Volume 8.7 fL (9.1-12.4); NEUTROPHILS ABSOLUTE AUTO 9.88 K/mm3 (1.96-9.15); NEUTROPHILS PERCENT AUTO 80 % (41-73); Platelet Count 200 K/mm3 (150-400); RDW Coefficient Variation 14.4 % (11.7-14.2); RDW Standard Deviation 46.9 fL (35.1-46.3); Red Blood Cell Count 3.84 M/mm3 (4.30-5.90); White Blood Cell Count 12.29 K/mm3 (4.00-11.30)
[2023-06-12 05:55] LABS: Bun/Creatinine Ratio 18.6 (12.0-20.0); Calcium, Blood 8.3 mg/dL (8.5-10.1); Creatinine, Blood 0.86 mg/dL (0.60-1.20); Potassium, Blood 4.2 mmol/L (3.5-5.5)
--- NOTE | 2023-06-12 06:14 | NUR ---
SHIFT SUMMARY PT IS ALERT AND ORIENTED TO PERSON, PLACE, TIME, AND SITUATION. PT PLEASANT AND COOPERATIVE WITH CARE. USES CPAP AT NIGHT, ON CONTINUOUS BIOX. PT DENIES CHEST PAIN/PRESSURE/TIGHTNESS. 2LPM OF O2 APPLIED TO PATIENT VIA NASAL CANNULA AFTER C/O SOB AND DESATING INTO THE HIGH 80'S. WITH O2 PT HAS MAINTAINED O2 SATS >92% WITH NASAL CANNULA. PT WONDERING IF HIS SETTING MIGHT BE DIFFERENT THAN HE ORIGINALLY THOUGHT, PT PLANS TO CALL HIS SON IN THE AM TO CHECK HIS SETTINGS AND WILL ASK TO BRING IN HOME CPAP MACHINE. PT IS ABLE TO MAKE HIS NEEDS KNOWN. NPO AT MIDNIGHT. BED LOCKED IN LOWEST POSITION WITH CALL LIGHT IN REACH. NO S/S OF DISTRESS NOTED AT THIS TIME.
--- NOTE | 2023-06-12 14:15 | NUR ---
PRE OP NOTE PT TO PACU PRE-OP. SEEN BY ADELAIDE AND DR NORIEGA. PT A&OX4, BREATHING 2LO2 VIA NC, IV TO L AC PATENT AND RUNNING LR AT TKO. History, Chart, Medications and Allergies reviewed before start of procedure.Patient confirms NPO status and agrees with scheduled surgery.CRACKLES IN LUNGS C MILD COUGH PROPR TO OR, BREATHING TREATMENT GIVEN PRIOR TO PT TRANSFER TO PACU, PT STATES THIS IS HIS BASELINE. Pre-Op teaching done. Pt verbalizes understanding.
--- NOTE | 2023-06-12 14:43 | NUR ---
06/12/23 1443 Mera Martinez PT ON SCHEDULED ANTIBIOTICS.
--- NOTE | 2023-06-12 17:48 | NUR ---
SHIFT SUMMARY PT A/OX4. PLEASANT AND COOPERATIVE. FAMILY AT BEDSIDE T/O THE DAY. PT KEPT NPO FOR I&D OF RECTAL ABCESS. PT GIVEN PAIN MEDS PER EMAR. TAKEN TO PROCEDURE THIS AFTERNOON AND RETURNED TO ROOM AT 1550. POST OP VITALS TAKEN. VITAL SIGNS STABLE. PT TOLERATING FOOD AND BEVERAGE WELL. PINROSE DRAIN PLACED AND AREA PACKED WITH GAUZE. PT CONT TO GET IV ABOX. PT C/O OF PAIN POST PROCEDURE; MED PER EMAR. CALL LIGHT ACCESSIBLE. ABLE TO MAKE NEEDS KNOWN. PT GETTING 2L O2 NASAL CANUAL WHEN SLEEPING AND WITH PAIN MEDS. CONT BIOX. CPAP BROUGHT FROM HOME.
[2023-06-13 02:38] VITALS: BP 111/59
--- NOTE | 2023-06-13 04:42 | NUR ---
PATIENT WAS AWAKE AND QUITE TALKATIVE UNTIL AFTER 2400 WHEN HE RECEIVED HIS MIDNIGHT DOSE OF ZOSYN. HE IS ALERT AND ORIENTED TIMES 4, OOB WITH ONE ASSIST TO USE THE URINAL. RECTAL AREA LOOKS RED INSIDE GLUTEAL FOLDS, HOWEVER AREA DIRECTLY SURROUNDING RECTUM HOLDING CHASITY DRAIN AREA IS PINK. MINIMAL DRAINAGE ON DAMP GAUZE. NO ODOR, JUST SMALL AMOUNT OF BLOOD ON WET GAUZE
[2023-06-13 07:27] VITALS: BP 112/68
[2023-06-13 08:26] LABS: BASOPHILS ABSOLUTE AUTO 0.02 K/mm3 (0.00-0.23); BASOPHILS PERCENT AUTO 0 % (0-2); EOSINOPHILS ABSOLUTE AUTO 0.13 K/mm3 (0.00-0.68); EOSINOPHILS PERCENT AUTO 1 % (0-6); Hematocrit 32.7 % (37.0-53.0); Hemoglobin 10.9 g/dL (13.5-17.5); IMMATURE GRAN ABSOLUTE AUTO 0.05 K/mm3 (0.00-0.10); IMMATURE GRAN PERCENT AUTO 1 % (0-1); LYMPHOCYTES ABSOLUTE AUTO 0.62 K/mm3 (0.84-5.20); LYMPHOCYTES PERCENT AUTO 6 % (21-46); MONOCYTES ABSOLUTE AUTO 0.67 K/mm3 (0.16-1.47); MONOCYTES PERCENT AUTO 6 % (4-13); Mean Corpuscular HGB 29.6 pg (26.0-34.0); Mean Corpuscular HGB Conc 33.3 g/dL (31.5-36.5); Mean Corpuscular Volume 89 fL (80-100); Mean Platelet Volume 8.6 fL (9.1-12.4); NEUTROPHILS ABSOLUTE AUTO 8.99 K/mm3 (1.96-9.15); NEUTROPHILS PERCENT AUTO 86 % (41-73); Platelet Count 184 K/mm3 (150-400); RDW Coefficient Variation 14.1 % (11.7-14.2); RDW Standard Deviation 46.3 fL (35.1-46.3); Red Blood Cell Count 3.68 M/mm3 (4.30-5.90); White Blood Cell Count 10.48 K/mm3 (4.00-11.30)
[2023-06-13] MEDS ORDERED: AMOCLA875 PO (13:56)
[2023-06-13] MEDS ORDERED: Norco 5-325 Ta1 EACH PO (13:57)
[2023-06-13] MEDS ORDERED: SENN187 PO (13:59)
--- NOTE | 2023-06-13 14:16 | NUR ---
DISCHARGE HOME PT [facility] PT WILL F/U WITH DR NORIEGA IN ONE WEEK FOR WOUND CARE. CONTINUE POC.
== END 2023-06-13 14:42 | disposition home or self-care (01) | DRG 345 ==
LOC: ER 17:12 → MEDS 17:13 → ER 19:47 → MEDS 19:47 → ER 06-13 14:38 → MEDS 06-13 14:39
PROVIDERS: Internal Medicine; Nurse Practitioner Acute Care; Surgery; ADMIT Student in an Organized Health Care Education/Training Program
PROC: 0D9P0ZZ Drainage of Rectum, Open Approach (ICD-10-PCS; principal; 2023-06-12 14:00)
DX: K61.1 Rectal abscess (principal); I50.30 Unspecified diastolic (congestive) heart failure; J44.9 Chronic obstructive pulmonary disease, unspecified; N40.0 Benign prostatic hyperplasia without lower urinary tract symptoms; I11.0 Hypertensive heart disease with heart failure; E78.5 Hyperlipidemia, unspecified; E11.9 Type 2 diabetes mellitus without complications; K21.9 Gastro-esophageal reflux disease without esophagitis; I25.10 Atherosclerotic heart disease of native coronary artery without angina pectoris; E66.01 Morbid (severe) obesity due to excess calories; D50.9 Iron deficiency anemia, unspecified; Z66 Do not resuscitate; Z88.8 Allergy status to other drugs, medicaments and biological substances; Z79.899 Other long term (current) drug therapy; Z68.37 Body mass index [BMI] 37.0-37.9, adult
CPT/HCPCS: 36415; 80048; 82947; 85025; 94640; 94660; 94664; 94760; 94762; 96374; 99285-25; A9270; J1100; J1885; J2405; J2543; J2704; J2765; J3010; J7030; J7120

== ENCOUNTER 2023-10-13 16:44 | Emergency (ER) | payer OTHER ==
[~2023-10-13] VITALS: Ht 177.8 cm; Wt 113.4 kg
[~2023-10-13 16:44] MED LIST changes: +AMOCLA875 PO; +Norco 5-325 Ta1 EACH PO; +SENN187 PO
[2023-10-13 17:01] LABS: BASOPHILS ABSOLUTE AUTO 0.02 K/mm3 (0.00-0.23); BASOPHILS PERCENT AUTO 0 % (0-2); EOSINOPHILS ABSOLUTE AUTO 0.17 K/mm3 (0.00-0.68); EOSINOPHILS PERCENT AUTO 2 % (0-6); Hematocrit 33.9 % (37.0-53.0); Hemoglobin 11.3 g/dL (13.5-17.5); IMMATURE GRAN ABSOLUTE AUTO 0.03 K/mm3 (0.00-0.10); IMMATURE GRAN PERCENT AUTO 0 % (0-1); LYMPHOCYTES ABSOLUTE AUTO 0.58 K/mm3 (0.84-5.20); LYMPHOCYTES PERCENT AUTO 6 % (21-46); MONOCYTES ABSOLUTE AUTO 0.67 K/mm3 (0.16-1.47); MONOCYTES PERCENT AUTO 7 % (4-13); Mean Corpuscular HGB 30.1 pg (26.0-34.0); Mean Corpuscular HGB Conc 33.3 g/dL (31.5-36.5); Mean Corpuscular Volume 90 fL (80-100); Mean Platelet Volume 8.3 fL (9.1-12.4); NEUTROPHILS ABSOLUTE AUTO 8.77 K/mm3 (1.96-9.15); NEUTROPHILS PERCENT AUTO 86 % (41-73); Platelet Count 196 K/mm3 (150-400); RDW Coefficient Variation 14.6 % (11.7-14.2); RDW Standard Deviation 48.1 fL (35.1-46.3); Red Blood Cell Count 3.75 M/mm3 (4.30-5.90); White Blood Cell Count 10.24 K/mm3 (4.00-11.30)
[2023-10-13 17:20] LABS: Albumin, Blood 3.2 g/dL (3.4-5.0); Bilirubin, Total 0.7 mg/dL (0.1-1.0); Bun/Creatinine Ratio 16.8 (12.0-20.0); Calcium, Blood 8.7 mg/dL (8.5-10.1); Creatinine, Blood 0.78 mg/dL (0.60-1.20); Globulin, Blood 3.3 g/dL (2.2-4.0); Potassium, Blood 4.1 mmol/L (3.5-5.5); Total Protein, Blood 6.5 g/dL (6.4-8.2)
[2023-10-13 17:44] LABS: Influenza A, PCR NEGATIVE (NEGATIVE); Influenza B, PCR NEGATIVE (NEGATIVE); Resp Syncytial Virus, PCR NEGATIVE (NEGATIVE); SARS-Cov-2 (COVID-19) PCR, MMC NEGATIVE (NEGATIVE)
[2023-10-13 21:00] VITALS: BP 130/76
[2023-10-13] MEDS ORDERED: Prednisone20 MG PO (21:07)
== END 2023-10-13 21:28 | disposition home or self-care (01) ==
LOC: ER 16:44
PROVIDERS: Emergency Medicine
DX: J44.1 Chronic obstructive pulmonary disease with (acute) exacerbation (principal); I50.32 Chronic diastolic (congestive) heart failure; E11.9 Type 2 diabetes mellitus without complications; K21.9 Gastro-esophageal reflux disease without esophagitis; E66.9 Obesity, unspecified; I25.10 Atherosclerotic heart disease of native coronary artery without angina pectoris; Z87.891 Personal history of nicotine dependence; Z68.35 Body mass index [BMI] 35.0-35.9, adult; Z11.52 Encounter for screening for COVID-19; Z88.8 Allergy status to other drugs, medicaments and biological substances; Z79.899 Other long term (current) drug therapy
CPT/HCPCS: 0241U; 71045; 80053; 83605; 83735; 83880; 84145; 84484; 85025; 94640; 94644; 94664; 99285-25; J7512

== ENCOUNTER → 2024-06-01 | Outpatient (CLI) | payer OTHER ==
[~2024-06-01] MED LIST changes: +FLUT1DIS5 INH; +FURO80 PO; +Prednisone20 MG PO
== END ==
LOC: LAB SHORT 11:30 → LAB 11:30
DX: J47.1 Bronchiectasis with (acute) exacerbation (principal)
CPT/HCPCS: 87070; 87077; 87185; 87205

== ENCOUNTER → 2024-07-05 | Outpatient (CLI) | payer OTHER | END | disposition home or self-care (01) | LOC: LAB 12:15 → LAB SHORT 12:15 | DX: J47.1 Bronchiectasis with (acute) exacerbation (principal) | CPT/HCPCS: 87070; 87077; 87185; 87186; 87205 ==

== ENCOUNTER 2024-08-13 12:45 | Inpatient (IN) | payer OTHER ==
[~2024-08-13] VITALS: Ht 177.8 cm; Wt 110.7 kg
[~2024-08-13 12:45] MED LIST changes: -ALBU90OI6 INH; -CALCIUM CARBON650 MG PO; -FLUT1DIS5 INH; +FLUT1DIS8 INH; -FURO80 PO; +PROAIR DIGIHAL90 MCG INH; +SPIRIVA RESPIMAT4 G3 INH; +TUMS500 MG PO
[2024-08-13 13:24] LABS: BASOPHILS ABSOLUTE AUTO 0.03 K/mm3 (0.00-0.23); BASOPHILS PERCENT AUTO 0 % (0-2); EOSINOPHILS PERCENT AUTO 0 % (0-6); Hematocrit 40.8 % (37.0-53.0); Hemoglobin 13.3 g/dL (13.5-17.5); IMMATURE GRAN ABSOLUTE AUTO 0.07 K/mm3 (0.00-0.10); IMMATURE GRAN PERCENT AUTO 0 % (0-1); LYMPHOCYTES ABSOLUTE AUTO 0.46 K/mm3 (0.84-5.20); LYMPHOCYTES PERCENT AUTO 3 % (21-46); MONOCYTES ABSOLUTE AUTO 0.69 K/mm3 (0.16-1.47); MONOCYTES PERCENT AUTO 4 % (4-13); Mean Corpuscular HGB 30.4 pg (26.0-34.0); Mean Corpuscular HGB Conc 32.6 g/dL (31.5-36.5); Mean Corpuscular Volume 93 fL (80-100); Mean Platelet Volume 8.4 fL (9.1-12.4); NEUTROPHILS ABSOLUTE AUTO 16.29 K/mm3 (1.96-9.15); NEUTROPHILS PERCENT AUTO 93 % (41-73); Platelet Count 149 K/mm3 (150-400); RDW Coefficient Variation 13.6 % (11.7-14.2); RDW Standard Deviation 46.7 fL (35.1-46.3); Red Blood Cell Count 4.37 M/mm3 (4.30-5.90); White Blood Cell Count 17.54 K/mm3 (4.00-11.30)
[2024-08-13 13:41] LABS: Albumin, Blood 3.6 g/dL (3.4-5.0); Albumin/Globulin Ratio 1.2 (0.8-1.8); Bilirubin, Total 0.8 mg/dL (0.1-1.0); Bun/Creatinine Ratio 17.6 (12.0-20.0); Calcium, Blood 8.3 mg/dL (8.5-10.1); Creatinine, Blood 0.68 mg/dL (0.60-1.20); Potassium, Blood 3.7 mmol/L (3.5-5.5); Total Protein, Blood 6.6 g/dL (6.4-8.2)
[2024-08-13] MEDS ORDERED: Azithromycin 500 MG in NS 250 ML IV ONE (15:40)
[2024-08-13] MEDS ORDERED: CefTRIAXone Sodium 1,000 MG in NS 100 ML IV ONE (15:40)
[2024-08-13 16:28] LABS: Influenza A, PCR NEGATIVE (NEGATIVE); Influenza B, PCR NEGATIVE (NEGATIVE); Resp Syncytial Virus, PCR NEGATIVE (NEGATIVE); SARS-Cov-2 (COVID-19) PCR, MMC NEGATIVE (NEGATIVE)
[2024-08-13] MEDS ORDERED: Polyethylene Glycol 3350 17 gm PO PRN (16:40)
[2024-08-13] MEDS ORDERED: FLU VACC TS2024-25(6MOS UP)/PF 45 MCG/0.5 ML SYRINGE IM PRN (16:45)
[2024-08-13] MEDS ORDERED: Acetaminophen 500 MG Tab PO PRN (16:45)
--- NOTE | 2024-08-13 18:34 | NUR ---
PT ARRIVED ON UNIT AT 1828 VIA GURNEY AND TRANSFERRED TO THE BED INDEPENDENTLY. PT AND FAMILY ORIENTED TO ROOM AND UNIT. NO ACUTE EVENTS AT THIS TIME.
--- NOTE | 2024-08-13 20:27 | NUR ---
195 PT LYING IN BED, REPORTS SOB THAT INCREASES A LITTLE WITH EXERTION, ON 2L O2 NC AT 96%. BS WAS 121. NO OTHER APPARENT SIGNS OF DISTRESS. REQUESTED AND RECIEVED A SNACK AND SOME BLACK COFFEE. HAS A FAMILY MEMBER BRINGING HIM IN DINNER AND HIS HOME CPAP. CALL LIGHT IS IN REACH.
[2024-08-13] MEDS ORDERED: Lactobacil 2-S.Thermo-Bifido 1 1 Cap PO SCH (21:00)
[2024-08-13] MEDS ORDERED: Docusate Sodium/Senna 1 Tab PO SCH (21:00)
[2024-08-13] MEDS ORDERED: ALEN10 PO (21:56)
[2024-08-13] MEDS ORDERED: ASCO500 PO (21:57)
[2024-08-13] MEDS ORDERED: BUTRANS TD (21:58)
[2024-08-13] MEDS ORDERED: GUAI600T33 PO (22:01)
[2024-08-13] MEDS ORDERED: LACT PO (22:02)
[2024-08-13] MEDS ORDERED: LORA10ER PO (22:02)
[2024-08-13 22:04] VITALS: BP 140/76
[2024-08-13] MEDS ORDERED: NARCAN4 M1 (22:11)
[2024-08-13] MEDS ORDERED: [UNRECOGNIZED DRUG - OTHER] PO (22:13)
[2024-08-13] MEDS ORDERED: TOLT4 PO (22:18)
[2024-08-13] MEDS ORDERED: DOCU100 PO (22:20)
[2024-08-13] MEDS ORDERED: Albuterol 2.5 MG/3 ML VIAL INH PRN (22:25)
--- NOTE | 2024-08-13 22:51 | NUR ---
2230 ASSISTED RT IN SETTING UP CPAP AND CONTINUOUS BIOX. PT DENIES NEED FOR ANYTHING ELSE AT THIS TIME. NO APPARENT SIGNS OF DISTRESS. CALL LIGHT IS IN REACH.
[2024-08-13] MEDS ORDERED: Albuterol 2.5 MG/3 ML VIAL INH SCH (22:55)
--- NOTE | 2024-08-14 00:43 | NUR ---
0030 PT LYING IN BED, EYES CLOSED, CPAP IN PLACE, CONT. BIOX ON. NO APPARENT SIGNS OF DISTRESS. BREATHING IS EVEN, UNLABORED. CALL LIGHT IS IN REACH.
--- NOTE | 2024-08-14 04:50 | NUR ---
0230 PT LYING IN BED, EYES CLOSED, APPEARS TO BE RESING. BREATHING IS EVEN, UNLABORED. CPAP IN PLACE, CONT. BIOX ON. NO APPARENT SIGNS OF DISTRESS. CALL LIGHT IS IN REACH.
--- NOTE | 2024-08-14 04:50 | NUR ---
0400 PT LYING IN BED, EYES CLOSED, WAKES EASILY TO VERBAL STIMULI. NO APPARENT SIGNS OF DISTRESS. CPAP IS IN PLACE, CONT. BIOX ON. CALL LIGHT IS IN REACH.
--- NOTE | 2024-08-14 04:52 | NUR ---
PT IS AAO X 4, ON 2L NC, USES CPAP AT NIGHT WITH 3L O2 BLEED IN. REPORTS SOB THAT INCREASES WITH EXERTION, ON 2L OX AT 96%. LAST BS WAS 121.
[2024-08-14 05:04] LABS: Base Excess Venous 2.7 mmol/L; Bicarbonate Venous 26.7 mmol/L (24.0-30.0); PCO2 Venous 38.2 mmHg (38-42); pH Blood Venous 7.45 (7.34-7.37)
[2024-08-14 05:37] LABS: Hematocrit 34.9 % (37.0-53.0); Hemoglobin 11.4 g/dL (13.5-17.5); Mean Corpuscular HGB Conc 32.7 g/dL (31.5-36.5); Mean Corpuscular Volume 92 fL (80-100); Mean Platelet Volume 8.7 fL (9.1-12.4); Platelet Count 141 K/mm3 (150-400); RDW Coefficient Variation 13.8 % (11.7-14.2); White Blood Cell Count 11.78 K/mm3 (4.00-11.30)
--- NOTE | 2024-08-14 06:16 | NUR ---
0530 PT LYING IN BED, EYES CLOSED, APPEARS TO BE RESTING. BREATHING IS EVEN, UNLABORED. NO APPARENT SIGNS OF DISTRESS. CPAP IN PLACE, CONT. BIOX ON. CALL LIGHT IS IN REACH. NO OTHER CHANGES THIS SHIFT.
[2024-08-14 06:51] VITALS: BP 116/58
[2024-08-14 07:01] LABS: Albumin, Blood 2.9 g/dL (3.4-5.0); Anion Gap 8 mmol/L (3-11); Blood Urea Nitrogen 13 mg/dL (8-24); Bun/Creatinine Ratio 19.7 (12.0-20.0); CO2, Blood 27 mmol/L (21-32); Chloride, Blood 111 mmol/L (98-108); Creatinine, Blood 0.66 mg/dL (0.60-1.20); Glomerular Filtration Rate 97 (60-); Glucose, Blood 122 mg/dL (70-99); Magnesium, Blood 2.1 mg/dL (1.6-2.4); Phosphorus, Blood 2.4 mg/dL (2.5-4.9); Potassium, Blood 3.4 mmol/L (3.5-5.5); Sodium, Blood 143 mmol/L (136-145)
[2024-08-14 07:15] VITALS: BP 119/54
[2024-08-14] MEDS ORDERED: Potassium Chloride 20 MEQ TabCR PO ONE (07:30)
[2024-08-14] MEDS ORDERED: Insulin Human Lispro 100 Units/ML 3ML Syringe SC SCH (07:30)
--- NOTE | 2024-08-14 07:48 | NUR ---
AM NOTE ASSUMED CARE OF PATIENT AT APPROX. 0700. PATIENT IN BED WATCHING TV. PATIENT ON 2L O2, MAINTAINING SATS AT 93%. PATIENT A&OX4. GAVE PATIENT A CUP OF COFFEE REQUESTED. CALL LIGHT IN REACH.
[2024-08-14] MEDS ORDERED: Enoxaparin 40 MG/0.4 ML SYR SC SCH (09:00)
[2024-08-14] MEDS ORDERED: Tiotropium Bromide 2.5 MCG/ACT MIST INHAL (10 ACT/4 GM) INH SCH (10:00)
[2024-08-14] MEDS ORDERED: Mometasone/Formoterol MDI 200/5 mcg 13 GM INH SCH (10:10)
[2024-08-14] MEDS ORDERED: CefTRIAXone Sodium 1,000 MG in NS 100 ML IV SCH (12:00)
[2024-08-14] MEDS ORDERED: Azithromycin 500 MG in NS 250 ML IV SCH (13:00)
--- NOTE | 2024-08-14 14:13 | NUR ---
UPDATE PATIENT A&OX4. PATIENT HAD VISITOR IN AFTERNOON. PATIENT IND IN ROOM, ENCOURAGED TO MOVE AROUND MUCH HE TOLERATES. NEW IV PLACED THIS AFTERNOON. IV ABX GIVEN. PATIENT EATING AND DRINKING WELL. PATIENT ON 2L.
--- NOTE | 2024-08-14 15:14 | NUR ---
UPDATE BEDSIDE REPORT GIVEN TO EMIGDIO ANDRADE AT APPROX. 1500. RAYMOND TO ASSUME CARE OF PATIENT FOR REST OF SHIFT.
--- NOTE | 2024-08-14 15:16 | NUR ---
REPORT RECEIVED FROM FAROOQ BEAL. THIS RN TO ASSUME PATIENT CARE.
[2024-08-14 15:49] VITALS: BP 130/68
[2024-08-14] MEDS ORDERED: Trospium Chloride 20 MG Tab PO SCH (16:30)
--- NOTE | 2024-08-14 17:50 | NUR ---
SHIFT SUMMARY. PATIENT IS A&OX4. PATIENT IS INDEPENDENT IN ROOM. PATIENT HAD HOME O2 EVAL TODAY-PATIENT DID WELL AND DESATTED TO 92 AT THE LOWEST PER RT. PATIENT HAS PRODUCTIVE COUGH AND REQUESTS COUGH MEDICATIONS. PATIENT IS PLEASANT AND COOPERATIVE WITH CARE. PLAN IS TO DISCHARGE HOME TOMORROW 08/15/24. PATIENT HAS TELE ON WITH LEADS IN PLACE-NO EVENTS NOTED THIS SHIFT. BED IS LOCKED IN THE LOWEST POSITION WITH CALL LIGHT IN REACH. CARE IS ONGOING.
--- NOTE | 2024-08-14 18:15 | NUR ---
SHIFT SUMMARY. PATIENT IS A&OX4. PATIENT IS INDEPENDENT IN ROOM. PATIENT CALLS APPROPRIATELY AND IS ABLE TO MAKE HIS NEEDS KNOWN. PATIENT IS CURRENTLY USING 2 LPM INTERMITTENTLY T/O THE DAY D/T DESATTING WITH EXERTION-PATIENT IS RA DURING AWAKE TIMES AT BASELINE AND USES 3L BLLED IN TO CPAP AT NIGHT. PATIENT HAS CPAP IN ROOM. PATIENT IS PLEASANT AND COOPERATIVE WITH CARE. FAMILY IN TO VISIT TODAY, PLAN IS FOR PATIENT TO DISCHARGE ON Wednesday08/15/24 PER REPORT. BED IS LOCKED IN THE LOWEST POSITION WITH CALL LIGHT IN REACH. CARE IS ONGOING.
[2024-08-14 19:07] VITALS: BP 124/75
[2024-08-14] MEDS ORDERED: Tamsulosin HCl 0.4 MG Cap PO SCH (21:00)
[2024-08-14] MEDS ORDERED: GuaiFENesin 600 MG TabCR PO SCH (21:00)
--- NOTE | 2024-08-15 03:26 | NUR ---
FILAMENT SHAPER SUMMARY VSS. ON 2L/MIN O2 PER NC UNTIL HS, THEN WAS PLACED ON CPAP WITH O2 BLEED IN. LUNG SOUNDS CONGESTED AND DIMINISHED PER AUSCULTATION. ALERT AND OREINTED. CHEERFUL AFFECT, COOPERATIVE WITH CARE. HAS BEEN RESTING QUIETLY WITH FEW INTERRPTIONS. ABLE TO REPOSITION SELF IN BED WITHOUT ASSIST FOR COMFORT. UP AD ANGEL WITH OBS. CALL LIGHT IN REACH, RAILS UP X 2 AND BED IN LOW POSITION FOR SAFETY. SCHEDULED FOR O2 EVAL IN THE AM FOR POSSIBLE DISCHARGE. WILL CONTINUE TO MONITOR
[2024-08-15 03:39] VITALS: BP 101/69
[2024-08-15 05:35] LABS: Hematocrit 33.7 % (37.0-53.0); Hemoglobin 10.9 g/dL (13.5-17.5); Mean Corpuscular HGB Conc 32.3 g/dL (31.5-36.5); Mean Corpuscular Volume 93 fL (80-100); Mean Platelet Volume 8.9 fL (9.1-12.4); Platelet Count 132 K/mm3 (150-400); RDW Coefficient Variation 13.8 % (11.7-14.2); RDW Standard Deviation 46.9 fL (35.1-46.3); Red Blood Cell Count 3.63 M/mm3 (4.30-5.90)
[2024-08-15 05:56] LABS: Bun/Creatinine Ratio 21.6 (12.0-20.0); Calcium, Blood 8.1 mg/dL (8.5-10.1); Creatinine, Blood 0.69 mg/dL (0.60-1.20); Potassium, Blood 3.9 mmol/L (3.5-5.5)
[2024-08-15] MEDS ORDERED: Omeprazole 20 MG CapCR PO SCH (06:00)
[2024-08-15 07:20] VITALS: BP 123/75
[2024-08-15] MEDS ORDERED: Cholecalciferol 1000 Unit Tablet (=25MCG) PO SCH (09:00)
[2024-08-15] MEDS ORDERED: Calcium Carbonate 500 MG Tab Chew PO SCH (09:00)
[2024-08-15] MEDS ORDERED: Furosemide 40 MG Tab PO SCH (09:00)
[2024-08-15] MEDS ORDERED: NS 250 ML IV ONE (13:46)
[2024-08-15 14:59] VITALS: BP 123/73
[2024-08-15] MEDS ORDERED: DOXY100 PO (16:28)
--- NOTE | 2024-08-15 17:08 | NUR ---
PT DISCHARGED THE PT VERBALIZED UN UDERSTANDING OF THE DC INSTRUCTIONS. PT WAS TRANSFERED VIA WHEELCHAIR TO HIS PICKUP ACCOMPANIED BY HIS AND THIS RN
== END 2024-08-15 17:05 | disposition home or self-care (01) | DRG 871 ==
LOC: ER 12:45 → MEDS 18:13
PROVIDERS: Emergency Medicine; Student in an Organized Health Care Education/Training Program; ADMIT Internal Medicine
DX: A41.9 Sepsis, unspecified organism (principal); J18.9 Pneumonia, unspecified organism; J96.21 Acute and chronic respiratory failure with hypoxia; I50.32 Chronic diastolic (congestive) heart failure; J44.0 Chronic obstructive pulmonary disease with (acute) lower respiratory infection; I25.10 Atherosclerotic heart disease of native coronary artery without angina pectoris; E11.9 Type 2 diabetes mellitus without complications; G47.33 Obstructive sleep apnea (adult) (pediatric); N40.0 Benign prostatic hyperplasia without lower urinary tract symptoms; E66.01 Morbid (severe) obesity due to excess calories; K21.9 Gastro-esophageal reflux disease without esophagitis; D50.9 Iron deficiency anemia, unspecified; Z98.84 Bariatric surgery status; Z90.49 Acquired absence of other specified parts of digestive tract; Z98.890 Other specified postprocedural states; Z85.46 Personal history of malignant neoplasm of prostate; Z92.3 Personal history of irradiation; Z87.891 Personal history of nicotine dependence; Z88.5 Allergy status to narcotic agent; Z88.8 Allergy status to other drugs, medicaments and biological substances
CPT/HCPCS: 0241U; 36415; 71046; 80048; 80053; 80069; 82803; 82947; 83605; 83735; 83880; 84145; 84484; 85025; 85027; 93005; 93010; 94640; 94664; 94761; 94762; 96365; 99285-25; A9270; J0456; J0696; J7050

== ENCOUNTER 2024-10-09 15:03 | Emergency (ER) | payer OTHER ==
[~2024-10-09] VITALS: Ht 177.8 cm; Wt 108.9 kg
[~2024-10-09 15:03] MED LIST changes: +ASCO500 PO; +BUTRANS TD; +DOCU100 PO; +DOXY100 PO; +GUAI600T33; +GUAI600T33 PO; +LACT PO; +LORA10ER PO; +NARCAN4 M1; +TOLT4 PO; +[UNRECOGNIZED DRUG - OTHER] PO
[2024-10-09 17:55] LABS: BASOPHILS ABSOLUTE AUTO 0.03 K/mm3 (0.00-0.23); BASOPHILS PERCENT AUTO 0 % (0-2); EOSINOPHILS ABSOLUTE AUTO 0.02 K/mm3 (0.00-0.68); EOSINOPHILS PERCENT AUTO 0 % (0-6); Hematocrit 38.9 % (37.0-53.0); Hemoglobin 12.9 g/dL (13.5-17.5); IMMATURE GRAN ABSOLUTE AUTO 0.07 K/mm3 (0.00-0.10); IMMATURE GRAN PERCENT AUTO 0 % (0-1); LYMPHOCYTES ABSOLUTE AUTO 0.96 K/mm3 (0.84-5.20); LYMPHOCYTES PERCENT AUTO 5 % (21-46); MONOCYTES PERCENT AUTO 4 % (4-13); Mean Corpuscular HGB 30.6 pg (26.0-34.0); Mean Corpuscular HGB Conc 33.2 g/dL (31.5-36.5); Mean Corpuscular Volume 92 fL (80-100); Mean Platelet Volume 9.1 fL (9.1-12.4); NEUTROPHILS ABSOLUTE AUTO 17.29 K/mm3 (1.96-9.15); NEUTROPHILS PERCENT AUTO 91 % (41-73); Platelet Count 178 K/mm3 (150-400); RDW Coefficient Variation 13.9 % (11.7-14.2); RDW Standard Deviation 47.1 fL (35.1-46.3); Red Blood Cell Count 4.21 M/mm3 (4.30-5.90); White Blood Cell Count 19.07 K/mm3 (4.00-11.30)
[2024-10-09 18:17] LABS: Albumin, Blood 3.3 g/dL (3.4-5.0); Bun/Creatinine Ratio 15.5 (12.0-20.0); Calcium, Blood 8.2 mg/dL (8.5-10.1); Creatinine, Blood 0.84 mg/dL (0.60-1.20); Globulin, Blood 3.4 g/dL (2.2-4.0); Potassium, Blood 4.7 mmol/L (3.5-5.5); Total Protein, Blood 6.7 g/dL (6.4-8.2)
[2024-10-09] MEDS ORDERED: Azithromycin 500 MG in NS 250 ML IV ONE (19:35)
[2024-10-09] MEDS ORDERED: CefTRIAXone Sodium 1,000 MG in NS 50 ML IV ONE (19:35)
[2024-10-09] MEDS ORDERED: Acetaminophen 325 MG TABLET PO ONE (19:35)
[2024-10-09 20:03] LABS: Influenza A, PCR NEGATIVE (NEGATIVE); Influenza B, PCR NEGATIVE (NEGATIVE); Resp Syncytial Virus, PCR NEGATIVE (NEGATIVE); SARS-Cov-2 (COVID-19) PCR, MMC NEGATIVE (NEGATIVE)
[2024-10-09] MEDS ORDERED: DOXY100 PO (22:27)
[2024-10-09] MEDS ORDERED: PRED20 PO (22:27)
[2024-10-09] MEDS ORDERED: AMOCLA875 PO (22:27)
[2024-10-09 22:45] VITALS: BP 117/73
== END 2024-10-09 23:01 | disposition home or self-care (01) ==
LOC: ER 15:03
PROVIDERS: Student in an Organized Health Care Education/Training Program
DX: J44.0 Chronic obstructive pulmonary disease with (acute) lower respiratory infection (principal); J18.9 Pneumonia, unspecified organism; I50.32 Chronic diastolic (congestive) heart failure; E11.9 Type 2 diabetes mellitus without complications; K21.9 Gastro-esophageal reflux disease without esophagitis; E66.9 Obesity, unspecified; I25.10 Atherosclerotic heart disease of native coronary artery without angina pectoris; Z88.5 Allergy status to narcotic agent; Z88.8 Allergy status to other drugs, medicaments and biological substances; Z79.899 Other long term (current) drug therapy; Z87.891 Personal history of nicotine dependence
CPT/HCPCS: 0241U; 36415; 71046; 80053; 83605; 83880; 84145; 85025; 87040; 87070; 87077; 87186; 87205; 93005; 93010; 96365; 96368; 99285-25; A9270; J0456; J0696; J7050

== ENCOUNTER 2025-01-24 14:11 | Inpatient (IN) | payer OTHER ==
[~2025-01-24] VITALS: Ht 177.8 cm; Wt 99.8 kg
[~2025-01-24 14:11] MED LIST changes: +PRED20 PO
[2025-01-24 15:00] LABS: BASOPHILS ABSOLUTE AUTO 0.02 K/mm3 (0.00-0.23); BASOPHILS PERCENT AUTO 0 % (0-2); EOSINOPHILS PERCENT AUTO 0 % (0-6); Hemoglobin 12.1 g/dL (13.5-17.5); IMMATURE GRAN ABSOLUTE AUTO 0.06 K/mm3 (0.00-0.10); IMMATURE GRAN PERCENT AUTO 1 % (0-1); LYMPHOCYTES ABSOLUTE AUTO 0.92 K/mm3 (0.84-5.20); LYMPHOCYTES PERCENT AUTO 7 % (21-46); MONOCYTES ABSOLUTE AUTO 0.74 K/mm3 (0.16-1.47); MONOCYTES PERCENT AUTO 6 % (4-13); Mean Corpuscular HGB 29.2 pg (26.0-34.0); Mean Corpuscular HGB Conc 32.7 g/dL (31.5-36.5); Mean Corpuscular Volume 89 fL (80-100); Mean Platelet Volume 8.9 fL (9.1-12.4); NEUTROPHILS ABSOLUTE AUTO 11.51 K/mm3 (1.96-9.15); NEUTROPHILS PERCENT AUTO 87 % (41-73); Platelet Count 193 K/mm3 (150-400); RDW Coefficient Variation 15.4 % (11.7-14.2); RDW Standard Deviation 50.3 fL (35.1-46.3); Red Blood Cell Count 4.15 M/mm3 (4.30-5.90); White Blood Cell Count 13.25 K/mm3 (4.00-11.30)
[2025-01-24 15:47] LABS: Albumin, Blood 2.9 g/dL (3.4-5.0); Bilirubin, Total 0.6 mg/dL (0.1-1.0); Bun/Creatinine Ratio 13.4 (12.0-20.0); Calcium, Blood 8.3 mg/dL (8.5-10.1); Creatinine, Blood 0.67 mg/dL (0.60-1.20); Potassium, Blood 3.1 mmol/L (3.5-5.5); Total Protein, Blood 5.9 g/dL (6.4-8.2)
[2025-01-24] MEDS ORDERED: Doxycycline Hyclate 100 MG in Dextrose 5% 250 ML IV ONE (16:20)
[2025-01-24] MEDS ORDERED: Magnesium Oxide 400 MG Tab PO ONE (16:20)
[2025-01-24] MEDS ORDERED: CefTRIAXone Sodium 1,000 MG in NS 100 ML IV ONE (16:20)
[2025-01-24] MEDS ORDERED: Potassium Chloride 20 MEQ TabCR PO ONE (16:20)
[2025-01-24] MEDS ORDERED: NS 1,000 ML IV SCH (16:25)
[2025-01-24 17:47] LABS: Influenza A, PCR NEGATIVE (NEGATIVE); Influenza B, PCR NEGATIVE (NEGATIVE); Resp Syncytial Virus, PCR NEGATIVE (NEGATIVE); SARS-Cov-2 (COVID-19) PCR, MMC NEGATIVE (NEGATIVE)
[2025-01-24] MEDS ORDERED: Ipratropium/Albuterol SulF 2.5-0.5MG/3 ML Amp INH SCH (19:50)
[2025-01-24] MEDS ORDERED: Albuterol 2.5 MG/3 ML VIAL INH PRN (19:55)
[2025-01-24] MEDS ORDERED: Furosemide 10 MG/ML 4ML Vial IV SCH (20:00)
[2025-01-24] MEDS ORDERED: MethylPREDNISolone Sod Succ 125 MG Vial IV SCH (21:00)
[2025-01-24] MEDS ORDERED: Insulin Human Lispro 100 Units/ML 3ML Syringe SC SCH (21:00)
[2025-01-24] MEDS ORDERED: Lactobacil 2-S.Thermo-Bifido 1 1 Cap PO SCH (21:00)
[2025-01-24 21:58] VITALS: BP 129/67
[2025-01-24 22:04] LABS: Base Excess Venous 0.8 mmol/L; Bicarbonate Venous 24.1 mmol/L (24.0-30.0); PCO2 Venous 53.4 mmHg (38-42); pH Blood Venous 7.31 (7.34-7.37)
[2025-01-24 23:56] LABS: Acinetobacter baumannii DNA Detected Bin >=10^7 copy/mL (NOT DETECT); CTX-M Resistance Gene Not Detected; Enterobacter cloacae DNA Detected Bin 10^5 copy/mL (NOT DETECT); Escherichia coli DNA Not Detected copy/mL (NOT DETECT); Haemophilus influenzae DNA Not Detected copy/mL (NOT DETECT); Klebsiella aerogenes DNA Not Detected copy/mL (NOT DETECT); Klebsiella oxytoca DNA Not Detected copy/mL (NOT DETECT); Klebsiella pneumoniae DNA Not Detected copy/mL (NOT DETECT); Moraxella catarrhalis DNA Detected Bin 10^6 copy/mL (NOT DETECT); Proteus sp DNA Not Detected copy/mL (NOT DETECT); Pseudomonas aeruginosa DNA Not Detected copy/mL (NOT DETECT); Serratia marcescens DNA Detected Bin >=10^7 copy/mL (NOT DETECT); Staphylococcus aureus DNA Not Detected copy/mL (NOT DETECT); Streptococcus agalactiae DNA Not Detected copy/mL (NOT DETECT); Streptococcus pneumoniae DNA Not Detected copy/mL (NOT DETECT); Streptococcus pyogenes DNA Not Detected copy/mL (NOT DETECT)
[2025-01-24 23:57] LABS: Adenovirus DNA Not Detected (NOT DETECT); Chlamydia pneumonia Not Detected (NOT DETECT); Human Coronavirus RNA Not Detected (NOT DETECT); Human Metapneumovirus RNA Not Detected (NOT DETECT); IMP Resistance Gene Not Detected; Influenza virus A RNA Not Detected (NOT DETECT); Influenza virus B RNA Not Detected (NOT DETECT); KPC Resistance Gene Not Detected; Legionella pneumophila Not Detected (NOT DETECT); Mycoplasma pneumoniae Not Detected (NOT DETECT); NDM Resistance Gene Not Detected; OXA-48-like Resistance Gene Not Detected; Parainfluenza virus RNA Not Detected (NOT DETECT); Respiratory syncytial Vir RNA Not Detected (NOT DETECT); Rhinovirus+Enterovirus RNA Not Detected (NOT DETECT); VIM Resistance Gene Not Detected
[2025-01-25 00:24] VITALS: BP 128/73
[2025-01-25] MEDS ORDERED: Acetaminophen 325 MG TABLET PO PRN (02:20)
[2025-01-25] MEDS ORDERED: Guaifenesin/Dextromethorphan Syrup 5 ML UDC PO PRN (02:25)
--- NOTE | 2025-01-25 03:15 | NUR ---
PATIENT RECIEVED FROM ER ON 4 LITERS OF O2, WITH DIAGNOSIS OF LEFT UPPER LUNG PNEUMONIA,COPD, HAS SHORTNESS OF BREATH, COUGHING , PRODUCING GREENISH SPUTUM, POTASSIUM MODERATLY LOW,RECIEVED 100MG OF VIBRAMYCIN, LIVES WITH HIS ,HE IS ON TELE, HAS AFIB,BILATERIAL PEADEL OEDEMA X2 ALSO FULL CODE.
[2025-01-25 04:01] VITALS: BP 104/67
[2025-01-25 05:35] LABS: BASOPHILS ABSOLUTE AUTO 0.03 K/mm3 (0.00-0.23); BASOPHILS PERCENT AUTO 0 % (0-2); EOSINOPHILS PERCENT AUTO 0 % (0-6); Hematocrit 35.6 % (37.0-53.0); Hemoglobin 11.6 g/dL (13.5-17.5); IMMATURE GRAN ABSOLUTE AUTO 0.11 K/mm3 (0.00-0.10); IMMATURE GRAN PERCENT AUTO 1 % (0-1); LYMPHOCYTES ABSOLUTE AUTO 0.76 K/mm3 (0.84-5.20); LYMPHOCYTES PERCENT AUTO 5 % (21-46); MONOCYTES PERCENT AUTO 3 % (4-13); Mean Corpuscular HGB 29.1 pg (26.0-34.0); Mean Corpuscular HGB Conc 32.6 g/dL (31.5-36.5); Mean Corpuscular Volume 89 fL (80-100); Mean Platelet Volume 8.8 fL (9.1-12.4); NEUTROPHILS ABSOLUTE AUTO 12.79 K/mm3 (1.96-9.15); NEUTROPHILS PERCENT AUTO 91 % (41-73); Platelet Count 197 K/mm3 (150-400); RDW Coefficient Variation 15.5 % (11.7-14.2); RDW Standard Deviation 50.7 fL (35.1-46.3); Red Blood Cell Count 3.99 M/mm3 (4.30-5.90); White Blood Cell Count 14.09 K/mm3 (4.00-11.30)
[2025-01-25 06:17] LABS: Albumin, Blood 2.7 g/dL (3.4-5.0); Bilirubin, Total 0.6 mg/dL (0.1-1.0); Bun/Creatinine Ratio 17.1 (12.0-20.0); Calcium, Blood 7.9 mg/dL (8.5-10.1); Creatinine, Blood 0.64 mg/dL (0.60-1.20); Globulin, Blood 2.8 g/dL (2.2-4.0); Potassium, Blood 2.9 mmol/L (3.5-5.5); Total Protein, Blood 5.5 g/dL (6.4-8.2)
[2025-01-25] MEDS ORDERED: Potassium Chloride 10 Meq Tablet SA PO ONE (08:00)
[2025-01-25] MEDS ORDERED: Potassium Chl 20MEQ/Water100ML 100 ML IV STA (08:01)
[2025-01-25 08:03] VITALS: BP 108/68
[2025-01-25 08:50] LABS: Bicarbonate Venous 25.8 mmol/L (24.0-30.0); pH Blood Venous 7.32 (7.34-7.37)
[2025-01-25] MEDS ORDERED: Empagliflozin 10 MG TAB PO SCH (09:00)
[2025-01-25] MEDS ORDERED: Doxycycline Hyclate 100 MG TAB PO SCH (09:00)
[2025-01-25] MEDS ORDERED: Enoxaparin 40 MG/0.4 ML SYR SC SCH (09:00)
[2025-01-25] MEDS ORDERED: NS 250 ML IV PRN (09:05)
[2025-01-25 15:22] VITALS: BP 96/56
[2025-01-25 15:26] LABS: Bun/Creatinine Ratio 17.2 (12.0-20.0); Calcium, Blood 8.4 mg/dL (8.5-10.1); Creatinine, Blood 0.81 mg/dL (0.60-1.20); Potassium, Blood 3.7 mmol/L (3.5-5.5)
--- NOTE | 2025-01-25 16:36 | NUR ---
SHIFT SUMMARY PT IS A/Ox4. PLEASANT AND COOPERATIVE WITH CARE. CURRENTLY ON 3L O2 NC SATTING AT 98%. PTS PAIN/FLUID RETENTION IS BEING TREATED PER EMAR. PTS LAST BP WAS 96/56, PT REPORTED NO LIGHTHEADEDNESS. PT HAS BEEN INDEPENDENTLY USING HIS URINAL AND HAS BEEN USING HIS CALL LIGHT TO MAKE NEEDS KNOWN T/O SHIFT. PT IS CURRENTLY SITTING UP IN BED VISITING WITH HIS . PTS BED IS IN LOWEST POSITION AND CALL LIGHT IS IN REACH. NO ACUTE NEEDS AT THIS TIME. PLAN OF CARE ONGOING.
[2025-01-25] MEDS ORDERED: CefTRIAXone Sodium 1,000 MG in NS 100 ML IV SCH (18:00)
--- NOTE | 2025-01-25 18:03 | NUR ---
PLEASE REFER TO STUDENT NOTES FOR SHIFT SUMMARY THIS NURSE HAS REVIEWED AND AGREES.
--- NOTE | 2025-01-25 18:38 | NUR ---
Pt. is awake and eating dinner when he welcomes my visit. Pt. jeramy pleasant and his spouse is at bedside. Facilitated a life review covering much for the Pts. life. Listened with empathy and a calming presence as we considered matters of shelly and belief, as well as the Pts. involvement, Pt. displayed evidence of being encouraged by the visit. Prayed with the Pt. Pt. verbalized gratituse for the spiritual carae visit and welcomed this travel registered nurse nicu to return.
[2025-01-25 19:36] VITALS: BP 110/64
--- NOTE | 2025-01-25 23:22 | NUR ---
TELEMETRY REPORTS PATIENT CONVERT TO AFIB 90'S AND 45 MINUTES LATER HAD 19 BEAT OF V-TACH AND BACK TO AFIB 90'S. PATIENT RESTING IN BED WATCHING TV. NO SIGNS OF DISTRESS. ASYMPTOMATIC. PATIENT REPORTS HE CAN FEEL HR INCREASE AT HOME AT TIMES. WCTM.
[2025-01-25 23:38] VITALS: BP 113/64
[2025-01-25] MEDS ORDERED: Metoprolol Tartrate 1 MG/ML 5 ML VIAL IV PRN (23:45)
--- NOTE | 2025-01-26 00:05 | NUR ---
UPDATE ASSUMED CARE OF PATIENT AT 2330. PATIENT WENT INTO AFIB AT ABOUT 2230. MD NOTIFIED. SEE NEW ORDERS.
--- NOTE | 2025-01-26 02:01 | NUR ---
RN TO RN PATIENT TRANSFER. REPORT GIVEN TO BRENT BEAL.
[2025-01-26 03:22] VITALS: BP 96/52
--- NOTE | 2025-01-26 05:40 | NUR ---
SHIFT SUMMARY PATIENT APPEARS TO BE RESTING COMFORTABLY AT THIS TIME. HE STATED THAT HE HAD BEEN HAVING MUCH CHRONIC PAIN DUE TO HIS METASTATIC CANCER. HE HAS BEEN MEDICATED WITH 5 MG OF OXYCODONE. PATIENT IS ORIENTED X4. HE HAS HIS CALL LIGHT WITHIN REACH. SAFETY PRECAUTIONS ARE BEING MAINTAINED.
--- NOTE | 2025-01-26 05:50 | NUR ---
SHIFT SUMMARY PATIENT HAS BEEN SLEEPING INTERMITTANTLY DURING THE NIGHT. I ASSUMED CARE OF HIM AT ABOUT 2330. HE HAD WENT INTO AFIB. WAS NOTIFIED. HE IS STILL IN AFIB. HE HAS NOT NEEDED AND PRN LOPRESSER. PATIENT DENIES CP AND LANDSCAPE ENGINEER IS IN PLACE. VITAL SIGNS HAVE BEEN STABLE. ECHO ORDERED FOR TODAY. PATIENT IS ORIENTED X4. HE HAS HIS CALL LIGHT WITHIN REACH. SAFETY PRECAUTIONS ARE BEING MAINTAINED.
[2025-01-26 05:51] LABS: BASOPHILS ABSOLUTE AUTO 0.01 K/mm3 (0.00-0.23); BASOPHILS PERCENT AUTO 0 % (0-2); EOSINOPHILS PERCENT AUTO 0 % (0-6); Hematocrit 35.5 % (37.0-53.0); Hemoglobin 11.7 g/dL (13.5-17.5); IMMATURE GRAN ABSOLUTE AUTO 0.13 K/mm3 (0.00-0.10); IMMATURE GRAN PERCENT AUTO 1 % (0-1); LYMPHOCYTES ABSOLUTE AUTO 0.39 K/mm3 (0.84-5.20); LYMPHOCYTES PERCENT AUTO 3 % (21-46); MONOCYTES ABSOLUTE AUTO 0.35 K/mm3 (0.16-1.47); MONOCYTES PERCENT AUTO 3 % (4-13); Mean Corpuscular HGB 29.6 pg (26.0-34.0); Mean Corpuscular Volume 90 fL (80-100); NEUTROPHILS ABSOLUTE AUTO 10.64 K/mm3 (1.96-9.15); NEUTROPHILS PERCENT AUTO 92 % (41-73); Platelet Count 224 K/mm3 (150-400); RDW Coefficient Variation 15.6 % (11.7-14.2); RDW Standard Deviation 51.1 fL (35.1-46.3); Red Blood Cell Count 3.95 M/mm3 (4.30-5.90); White Blood Cell Count 11.52 K/mm3 (4.00-11.30)
[2025-01-26 06:32] LABS: Bun/Creatinine Ratio 22.9 (12.0-20.0); Calcium, Blood 8.5 mg/dL (8.5-10.1); Creatinine, Blood 0.79 mg/dL (0.60-1.20); Potassium, Blood 3.3 mmol/L (3.5-5.5); Thyroid Stimulating Hormone 0.403 uIU/mL (0.360-4.800)
[2025-01-26 07:57] VITALS: BP 121/56
[2025-01-26] MEDS ORDERED: Potassium Chloride 10 Meq Tablet SA PO ONE (08:45)
[2025-01-26] MEDS ORDERED: Potassium Chloride 40 MEQ in NS 250 ML IV ONE (08:50)
[2025-01-26] MEDS ORDERED: Furosemide 40 MG Tab PO SCH (09:00)
[2025-01-26 12:08] VITALS: BP 110/56
[2025-01-26] MEDS ORDERED: MethylPREDNISolone Sod Succ 125 MG Vial IV SCH (16:00)
[2025-01-26 16:15] VITALS: BP 101/55
[2025-01-26 19:21] VITALS: BP 115/68
--- NOTE | 2025-01-26 22:49 | NUR ---
PT LEFT UNIT VIA W/C BY SON TO GO VISIT IN ER 2. PT HAS NC 3 L OF OXYGEN AND TELE GOING W/COLLAR SETTER OVERLOCK NOTIFIED AND ER NOTIFIED. NURSING PRIVATE BRANCH EXCHANGE SERVICE ADVISER NOTIFIED AND COMMUNICATIONS CLERK NOTIFIED. PT LEFT AT [id number]
--- NOTE | 2025-01-26 23:20 | NUR ---
PT RETURNED TO MEDICAL FLOOR FROM ER TO VISIT AT 2320 AND IS SETTLED BACK INTO HIS ROOM.
[2025-01-26 23:26] VITALS: BP 107/56
--- NOTE | 2025-01-27 05:21 | NUR ---
SHIFT SUMM: PT IS A 74 YO FULL CODE WHO WAS ADMITTED FOR SEPSIS FROM PNEUMONIA. PT IS A&OX4 AND [place]. CURRENTLY ON TELE W/NEW DIAGNOSIS OF A-FIB IN THE 80'S W/PVC'S AND PAC'S. PT IS ON 3L NC AND USES CPAP AT NIGHT WHILE ASLEP. PT IS SBA WITH FWW TO RESTROOM. PT DID NOT REQUIRE INSULIN LAST NIGHT.PT HAS BEEN ANXIOUS ABOUT WHO WAS ADMITTED TO TO MEDICAL FLOOR THIS SHIFT. PT DID VISIT HER IN ER (SEE PREV NOTE). PT HAS BEEN MEDICATED FOR PAIN PER EMAR. PT USES URINAL AT BEDSIDE AND CALLS TO MAKE NEEDS KNOWN W/CALL LIGHT IN REACH.
[2025-01-27 05:34] VITALS: BP 108/60
[2025-01-27 05:51] LABS: BASOPHILS ABSOLUTE AUTO 0.01 K/mm3 (0.00-0.23); BASOPHILS PERCENT AUTO 0 % (0-2); EOSINOPHILS PERCENT AUTO 0 % (0-6); Hematocrit 34.4 % (37.0-53.0); Hemoglobin 11.2 g/dL (13.5-17.5); IMMATURE GRAN ABSOLUTE AUTO 0.12 K/mm3 (0.00-0.10); IMMATURE GRAN PERCENT AUTO 1 % (0-1); LYMPHOCYTES ABSOLUTE AUTO 0.41 K/mm3 (0.84-5.20); LYMPHOCYTES PERCENT AUTO 3 % (21-46); MONOCYTES ABSOLUTE AUTO 0.18 K/mm3 (0.16-1.47); MONOCYTES PERCENT AUTO 2 % (4-13); Mean Corpuscular HGB 29.4 pg (26.0-34.0); Mean Corpuscular HGB Conc 32.6 g/dL (31.5-36.5); Mean Corpuscular Volume 90 fL (80-100); Mean Platelet Volume 8.7 fL (9.1-12.4); NEUTROPHILS ABSOLUTE AUTO 11.26 K/mm3 (1.96-9.15); NEUTROPHILS PERCENT AUTO 94 % (41-73); Platelet Count 212 K/mm3 (150-400); RDW Coefficient Variation 15.5 % (11.7-14.2); RDW Standard Deviation 51.1 fL (35.1-46.3); Red Blood Cell Count 3.81 M/mm3 (4.30-5.90); White Blood Cell Count 11.98 K/mm3 (4.00-11.30)
[2025-01-27 06:16] LABS: Bun/Creatinine Ratio 31.1 (12.0-20.0); Creatinine, Blood 0.71 mg/dL (0.60-1.20); Potassium, Blood 3.6 mmol/L (3.5-5.5)
[2025-01-27 07:58] VITALS: BP 124/82
[2025-01-27 11:35] VITALS: BP 120/73
[2025-01-27 15:07] VITALS: BP 120/86
[2025-01-27] MEDS ORDERED: Furosemide 40 MG Tab PO STA (16:58)
[2025-01-27] MEDS ORDERED: Loratadine 10 MG Tab PO PRN (17:05)
[2025-01-27] MEDS ORDERED: Mometasone/Formoterol MDI 200/5 mcg 13 GM INH SCH (17:30)
[2025-01-27] MEDS ORDERED: Polyethylene Glycol 3350 17 gm PO PRN (17:35)
[2025-01-27] MEDS ORDERED: dilTIAZem HCL 120 MG CAP.CD PO SCH (18:00)
--- NOTE | 2025-01-27 19:22 | NUR ---
PT A&OX4, 3L O2 NC DURING DAY. USES URINAL INDEPENDENTLY, SBA TO BATHROOM, 2 LG BM THIS SHIFT. PT WORRIED ABOUT WHO IS ALSO ADMITTED TO MEDICAL IN 349, WAS ABLE TO VISIT WITH HER TWO TIMES THIS SHIFT. CONT PULSE OX IN PLACE. COOPERATIVE WITH CARE, CALL LIGHT IN REACH.
[2025-01-27 19:30] VITALS: BP 131/73
[2025-01-27] MEDS ORDERED: Docusate Sodium 100 MG Cap PO SCH (21:00)
[2025-01-27] MEDS ORDERED: GuaiFENesin 600 MG TabCR PO SCH (21:00)
[2025-01-27] MEDS ORDERED: Tamsulosin HCl 0.4 MG Cap PO SCH (21:00)
--- NOTE | 2025-01-28 02:57 | NUR ---
SHIFT SUMM: PT HAS BEEN RELAXING THIS SHIFT AND REPORTS READY TO GO HOME. PT HAS VISITED IN ROOM 349 THIS SHIFT. PT HAD TELE D/C'D THIS SHIFT BUT HAS CONT PULSE OX THIS SHIFT AND MAINTAINING SATS ABOVE 95% ON 3L NC. PT IS IND TO THE BATHROOOM AND USES THE URINAL IND AT BEDSIDE. PT HAS FREQUENT URINATION.PT TAKES MEDS WWW. PT IS IONE BUT CALLS TO MAKE NEEDS KNOWN. A&OX4.CALL LIGHT WITHIN REACH. BED LOW AND LOCKED.
[2025-01-28 03:43] VITALS: BP 111/61
[2025-01-28 05:23] LABS: Hematocrit 33.8 % (37.0-53.0); Mean Corpuscular HGB 30.1 pg (26.0-34.0); Mean Corpuscular HGB Conc 32.5 g/dL (31.5-36.5); Mean Corpuscular Volume 93 fL (80-100); Mean Platelet Volume 8.8 fL (9.1-12.4); Platelet Count 195 K/mm3 (150-400); RDW Coefficient Variation 15.3 % (11.7-14.2); RDW Standard Deviation 52.5 fL (35.1-46.3); Red Blood Cell Count 3.65 M/mm3 (4.30-5.90); White Blood Cell Count 8.51 K/mm3 (4.00-11.30)
[2025-01-28 05:50] LABS: Albumin, Blood 2.6 g/dL (3.4-5.0); Anion Gap 11 mmol/L (3-11); Blood Urea Nitrogen 25 mg/dL (8-24); Bun/Creatinine Ratio 33.9 (12.0-20.0); CO2, Blood 25 mmol/L (21-32); Chloride, Blood 107 mmol/L (98-108); Creatinine, Blood 0.74 mg/dL (0.60-1.20); Glomerular Filtration Rate 94 (60-); Glucose, Blood 165 mg/dL (70-99); Magnesium, Blood 2.2 mg/dL (1.6-2.4); Phosphorus, Blood 4.1 mg/dL (2.5-4.9); Potassium, Blood 3.7 mmol/L (3.5-5.5); Sodium, Blood 139 mmol/L (136-145)
[2025-01-28] MEDS ORDERED: Omeprazole 20 MG CapCR PO SCH (06:00)
[2025-01-28] MEDS ORDERED: Trospium Chloride 20 MG Tab PO SCH (07:30)
[2025-01-28 07:56] VITALS: BP 120/72
[2025-01-28] MEDS ORDERED: Furosemide 40 MG Tab PO ONE (08:40)
[2025-01-28] MEDS ORDERED: Cholecalciferol 1000 Unit Tablet (=25MCG) PO SCH (09:00)
[2025-01-28] MEDS ORDERED: Ascorbic Acid 500 MG Tab PO SCH (09:00)
[2025-01-28] MEDS ORDERED: PredniSONE 20 MG Tab PO SCH (09:00)
[2025-01-28] MEDS ORDERED: Ferrous Sulfate 325 MG Tab PO SCH (09:00)
[2025-01-28] MEDS ORDERED: Multivitamins/Minerals TAB PO SCH (12:00)
[2025-01-28] MEDS ORDERED: CEFU500T30 PO (12:45)
[2025-01-28] MEDS ORDERED: DILT120 PO (12:50)
[2025-01-28] MEDS ORDERED: JARDIANCE10 MG PO (12:51)
[2025-01-28] MEDS ORDERED: DOXY100 PO (12:51)
[2025-01-28] MEDS ORDERED: Prednisone10 MG PO (12:53)
--- NOTE | 2025-01-28 14:20 | NUR ---
DISCHARGE INSTRUCTIONS REVIEWED WITH PATIENT AND PATIENT HAS NO QUESTIONS REGARDING INSTRUCTIONS. PT SIGNED DISCHARGE INSTRUCTIONS BUT MISTAKENLY PUT WITH HIS DISCHARGE INSTRUCTIONS AND TAKEN HOME
--- NOTE | 2025-01-28 16:00 | NUR ---
PT DISCHARGED HOME WITH SPOUSE. EDUCATION PROVIDED, ALL BELONGINGS WITH PATIENT.
[2025-02-02] MEDS ORDERED: BUPRENORPHINE 7.5 MCG/HR TOP SCH (17:35)
== END 2025-01-28 14:01 | disposition home health service (06) | DRG 871 ==
LOC: ER 14:11 → MEDS 14:12
PROVIDERS: Emergency Medicine; Internal Medicine; Student in an Organized Health Care Education/Training Program; ADMIT Family Medicine
PROC: 3E03329 Introduction of Other Anti-infective into Peripheral Vein, Percutaneous Approach (ICD-10-PCS; principal; 2025-01-24)
PROC: 5A0935A Assistance with Respiratory Ventilation, Less than 24 Consecutive Hours, High Flow/Velocity Cannula (ICD-10-PCS; 2025-01-24)
PROC: 5A09357 Assistance with Respiratory Ventilation, Less than 24 Consecutive Hours, Continuous Positive Airway Pressure (ICD-10-PCS; 2025-01-25)
DX: A41.59 Other Gram-negative sepsis (principal); J15.61 Pneumonia due to Acinetobacter baumannii; J15.69 Pneumonia due to other Gram-negative bacteria; J96.21 Acute and chronic respiratory failure with hypoxia; J96.22 Acute and chronic respiratory failure with hypercapnia; J44.0 Chronic obstructive pulmonary disease with (acute) lower respiratory infection; J44.1 Chronic obstructive pulmonary disease with (acute) exacerbation; I50.32 Chronic diastolic (congestive) heart failure; J98.11 Atelectasis; A41.54 Sepsis due to Acinetobacter baumannii; A41.53 Sepsis due to Serratia; R65.20 Severe sepsis without septic shock; E87.6 Hypokalemia; E11.9 Type 2 diabetes mellitus without complications; K43.2 Incisional hernia without obstruction or gangrene; N40.0 Benign prostatic hyperplasia without lower urinary tract symptoms; K21.9 Gastro-esophageal reflux disease without esophagitis; D50.9 Iron deficiency anemia, unspecified; E55.9 Vitamin D deficiency, unspecified; M81.0 Age-related osteoporosis without current pathological fracture; G89.4 Chronic pain syndrome; J43.9 Emphysema, unspecified; D51.9 Vitamin B12 deficiency anemia, unspecified; E66.811 Obesity, class 1; G47.33 Obstructive sleep apnea (adult) (pediatric); E88.09 Other disorders of plasma-protein metabolism, not elsewhere classified; I25.10 Atherosclerotic heart disease of native coronary artery without angina pectoris; I48.91 Unspecified atrial fibrillation; Z99.81 Dependence on supplemental oxygen; Z98.84 Bariatric surgery status; Z85.46 Personal history of malignant neoplasm of prostate; Z92.3 Personal history of irradiation; Z88.5 Allergy status to narcotic agent; Z88.8 Allergy status to other drugs, medicaments and biological substances; Z79.83 Long term (current) use of bisphosphonates; Z79.52 Long term (current) use of systemic steroids; Z87.891 Personal history of nicotine dependence; Z68.31 Body mass index [BMI] 31.0-31.9, adult; Z79.51 Long term (current) use of inhaled steroids
CPT/HCPCS: 0241U; 0528U; 36415; 71046; 80048; 80053; 80069; 82803; 82947; 83605; 83735; 83880; 84145; 84443; 84484; 85025; 85027; 87040; 87070; 87077; 87186; 87205; 93005; 93010; 93306; 94640; 94664; 94761; 94762; 96366; 96367; 96372; 96375; 96376; 99285-25; A9270; G0378; J0696; J1650; J1938; J2919; J3480; J7030; J7050; J7060; J7512

== ENCOUNTER → 2025-01-30 | Outpatient (CLI) | payer MEDICARE ==
[~2025-01-30] MED LIST changes: +CEFU500T30 PO; +DILT120 PO; +JARDIANCE10 MG PO; +Prednisone10 MG PO
[2025-01-30 14:32] LABS: Albumin, Blood 2.9 g/dL (3.4-5.0); Anion Gap 12 mmol/L (3-11); Blood Urea Nitrogen 19 mg/dL (8-24); Bun/Creatinine Ratio 25.2 (12.0-20.0); CO2, Blood 25 mmol/L (21-32); Chloride, Blood 106 mmol/L (98-108); Creatinine, Blood 0.75 mg/dL (0.60-1.20); Glomerular Filtration Rate 94 (60-); Glucose, Blood 96 mg/dL (70-99); Phosphorus, Blood 3.8 mg/dL (2.5-4.9); Potassium, Blood 3.3 mmol/L (3.5-5.5); Sodium, Blood 140 mmol/L (136-145)
== END ==
LOC: LAB 10:30 → LAB SHORT 10:30
PROVIDERS: Internal Medicine
DX: A41.9 Sepsis, unspecified organism (principal)
CPT/HCPCS: 80069

== ENCOUNTER 2025-03-14 11:29 | Inpatient (IN) | payer OTHER ==
[~2025-03-14] VITALS: Ht 175.3 cm; Wt 94.0 kg
[~2025-03-14 11:29] MED LIST changes: +AZIT250 PO
[2025-03-14 12:27] LABS: BASOPHILS ABSOLUTE AUTO 0.02 K/mm3 (0.00-0.23); BASOPHILS PERCENT AUTO 0 % (0-2); EOSINOPHILS ABSOLUTE AUTO 0.00 K/mm3 (0.00-0.68); EOSINOPHILS PERCENT AUTO 0 % (0-6); Hematocrit 40.7 % (37.0-53.0); Hemoglobin 12.6 g/dL (13.5-17.5); IMMATURE GRAN ABSOLUTE AUTO 0.04 K/mm3 (0.00-0.10); IMMATURE GRAN PERCENT AUTO 0 % (0-1); LYMPHOCYTES ABSOLUTE AUTO 0.31 K/mm3 (0.84-5.20); LYMPHOCYTES PERCENT AUTO 3 % (21-46); MONOCYTES ABSOLUTE AUTO 0.46 K/mm3 (0.16-1.47); MONOCYTES PERCENT AUTO 4 % (4-13); Mean Corpuscular HGB Conc 31.0 g/dL (31.5-36.5); Mean Corpuscular Volume 92 fL (80-100); NEUTROPHILS ABSOLUTE AUTO 10.00 K/mm3 (1.96-9.15); NEUTROPHILS PERCENT AUTO 92 % (41-73); NRBC ABSOLUTE 0.00 K/mm3 (0.00-0.02); NRBC Auto 0.0 /100 WBC (0.0-0.2); Platelet Count 163 K/mm3 (150-400); RDW Coefficient Variation 16.0 % (11.7-14.2); RDW Standard Deviation 54.4 fL (35.1-46.3)
[2025-03-14 12:39] LABS: Alanine Aminotransfer (ALT/SGP 20.0 U/L (12-78); Albumin, Blood 2.9 g/dL (3.4-5.0); Albumin/Globulin Ratio 0.9 (0.8-1.8); Anion Gap 6.0 mmol/L (3-11); Aspartate Aminotrans (AST/SGOT 14.0 U/L (12-37); Bilirubin, Total 0.9 mg/dL (0.1-1.0); Blood Urea Nitrogen 12.0 mg/dL (8-24); CO2, Blood 28.0 mmol/L (21-32); Calcium, Blood 8.0 mg/dL (8.5-10.1); Chloride, Blood 110.0 mmol/L (98-108); Creatinine, Blood 0.67 mg/dL (0.60-1.20); Globulin, Blood 3.2 g/dL (2.2-4.0); Glucose, Blood 133.0 mg/dL (70-99); Potassium, Blood 4.0 mmol/L (3.5-5.5); Sodium, Blood 140.0 mmol/L (136-145); Total Protein, Blood 6.1 g/dL (6.4-8.2)
[2025-03-14] MEDS ORDERED: Ipratropium Bromide INH 0.02% 0.5 mg/2.5ML Vial INH SCH (12:50)
[2025-03-14] MEDS ORDERED: Albuterol 2.5 MG/3 ML VIAL INH SCH (12:50)
[2025-03-14] MEDS ORDERED: CefTRIAXone Sodium 1,000 MG in NS 100 ML IV ONE (13:10)
[2025-03-14 13:22] LABS: pH Blood Venous 7.41 (7.34-7.37)
[2025-03-14 14:04] LABS: Influenza A, PCR NEGATIVE (NEGATIVE); Influenza B, PCR NEGATIVE (NEGATIVE); Resp Syncytial Virus, PCR NEGATIVE (NEGATIVE); SARS-Cov-2 (COVID-19) PCR, MMC NEGATIVE (NEGATIVE)
[2025-03-14] MEDS ORDERED: NS 1,000 ML IV SCH (15:10)
[2025-03-14] MEDS ORDERED: Ondansetron HCl 2 MG / ML 2ML Vial IV PRN (15:10)
[2025-03-14] MEDS ORDERED: ELIQUIS5 M2 PO (15:59)
[2025-03-14] MEDS ORDERED: CEFUROXIME SOD1.5 GM (16:02)
[2025-03-14] MEDS ORDERED: ALEN10 PO (16:03)
[2025-03-14] MEDS ORDERED: TOLTERODINE TART4 MG PO (16:05)
[2025-03-14 16:47] VITALS: BP 120/59
[2025-03-14] MEDS ORDERED: Ipratropium/Albuterol SulF 2.5-0.5MG/3 ML Amp INH SCH (17:00)
[2025-03-14] MEDS ORDERED: Piperacillin/Tazobactam Sod 3.375 GM in NS 100 ML IV SCH (17:00)
[2025-03-14] MEDS ORDERED: Albuterol 2.5 MG/3 ML VIAL INH PRN (17:00)
[2025-03-14] MEDS ORDERED: Naloxone HCL 4 MG SPRAY (1 UNIT) PRN (17:05)
[2025-03-14] MEDS ORDERED: NS 1,000 ML IV ONE (17:08)
[2025-03-14] MEDS ORDERED: Tiotropium Bromide 2.5 MCG/ACT MIST INHAL (10 ACT/4 GM) INH SCH (17:10)
[2025-03-14] MEDS ORDERED: NS 250 ML IV PRN (17:20)
[2025-03-14] MEDS ORDERED: Polyethylene Glycol 3350 17 gm PO PRN (17:20)
[2025-03-14] MEDS ORDERED: Albuterol HFA200 ACT/6.7 GM INH INH PRN (17:20)
[2025-03-14] MEDS ORDERED: Formoterol/Mometasone MDI 5/200 mcg 13 GM INH SCH (17:20)
[2025-03-14] MEDS ORDERED: Insulin Human Lispro 100 Units/ML 3ML Syringe SC SCH (19:00)
[2025-03-14 20:12] VITALS: BP 103/62
[2025-03-14] MEDS ORDERED: Lactobacil 2-S.Thermo-Bifido 1 1 Cap PO SCH (21:00)
[2025-03-15] VITALS (7 sets, daily range): BP systolic 99–115; BP diastolic 53–69
--- NOTE | 2025-03-15 04:27 | NUR ---
SHIFT SUMMARY ADMITTED FOR PNEUMONIA/SEPSIS. FULL CODE. IV ANTIB AND STEROIDS ARE SCHEDULED. VA PATIENT. ADA/MINCED MOIST DIET. AC - CBG'S. 4 LPM O2 @ BASELINE. HE USES A CPAP @ HS. STANDBY ASSIST W/FWW. A&O X4. HE IS ON ELIQUIS. HX: COPD, CHF, ASTHMA.
[2025-03-15 05:24] LABS: BASOPHILS ABSOLUTE AUTO 0.00 K/mm3 (0.00-0.23); BASOPHILS PERCENT AUTO 0 % (0-2); EOSINOPHILS ABSOLUTE AUTO 0.00 K/mm3 (0.00-0.68); EOSINOPHILS PERCENT AUTO 0 % (0-6); Hematocrit 36.5 % (37.0-53.0); Hemoglobin 11.5 g/dL (13.5-17.5); IMMATURE GRAN ABSOLUTE AUTO 0.04 K/mm3 (0.00-0.10); IMMATURE GRAN PERCENT AUTO 0 % (0-1); LYMPHOCYTES ABSOLUTE AUTO 0.46 K/mm3 (0.84-5.20); LYMPHOCYTES PERCENT AUTO 4 % (21-46); MONOCYTES ABSOLUTE AUTO 0.18 K/mm3 (0.16-1.47); MONOCYTES PERCENT AUTO 2 % (4-13); Mean Corpuscular HGB Conc 31.5 g/dL (31.5-36.5); Mean Corpuscular Volume 92 fL (80-100); NEUTROPHILS ABSOLUTE AUTO 9.66 K/mm3 (1.96-9.15); NEUTROPHILS PERCENT AUTO 94 % (41-73); NRBC ABSOLUTE 0.00 K/mm3 (0.00-0.02); NRBC Auto 0.0 /100 WBC (0.0-0.2); Platelet Count 137 K/mm3 (150-400); RDW Coefficient Variation 16.0 % (11.7-14.2); RDW Standard Deviation 54.2 fL (35.1-46.3)
[2025-03-15 05:47] LABS: Alanine Aminotransfer (ALT/SGP 17.0 U/L (12-78); Albumin, Blood 2.6 g/dL (3.4-5.0); Albumin/Globulin Ratio 0.8 (0.8-1.8); Anion Gap 5.0 mmol/L (3-11); Aspartate Aminotrans (AST/SGOT 6.0 U/L (12-37); Bilirubin, Total 0.5 mg/dL (0.1-1.0); Blood Urea Nitrogen 15.0 mg/dL (8-24); CO2, Blood 30.0 mmol/L (21-32); Calcium, Blood 8.1 mg/dL (8.5-10.1); Chloride, Blood 107.0 mmol/L (98-108); Creatinine, Blood 0.73 mg/dL (0.60-1.20); Globulin, Blood 3.2 g/dL (2.2-4.0); Glucose, Blood 223.0 mg/dL (70-99); Potassium, Blood 3.8 mmol/L (3.5-5.5); Sodium, Blood 138.0 mmol/L (136-145); Total Protein, Blood 5.8 g/dL (6.4-8.2)
[2025-03-15] MEDS ORDERED: ALENDRONATE 10 MG PO SCH (06:00)
[2025-03-15] MEDS ORDERED: Potassium Chloride 10 Meq Tablet SA PO SCH (09:00)
[2025-03-15] MEDS ORDERED: Cyanocobalamin 1000 MCG/ML 1ML Vial IM SCH (09:00)
[2025-03-15] MEDS ORDERED: Cholecalciferol 1000 Unit Tablet (=25MCG) PO SCH (09:00)
--- NOTE | 2025-03-15 11:09 | NUR ---
TELE NOTIFIED THIS RN OF PT ARRYTHMIA EVENT AT 0830. PT ASYMPTOMATIC. THIS RN NOTIFIED .
[2025-03-15] MEDS ORDERED: Vancomycin (Pharmacy Consult) IV SCH (15:00)
--- NOTE | 2025-03-15 15:15 | NUR ---
Pt. is awake and sittingon the edge of his bed when he welcomes my visit. Pt. is pleasant but displays anxiety about his spouse who is currently in the ER after an accident. Facilitated a short life review and considered matters of shelly and belief. Pt. requested that we pray for his . Prayed for the Pt. AND his . This insurance rater agreed to visit Pts. spouse immediatley. Pt. verbalize gratitude for the spiritual care visit.
--- NOTE | 2025-03-15 18:12 | NUR ---
SHIFT SUMMARY PT A&OX4, VSS, ON 4L O2 NC, AMB W/ ASSIST, TOLERATING PO, VOIDING, AND DENIED PAIN. BLOOD CULTURE POSITIVE, VANCO GIVEN PER ORDER. PT WORKED W/ PHYSICAL THERAPY, SEE THERAPY NOTE. NO OTHER ACUTE CHANGES. CALL LIGHT WITHIN REACH AND PT ABLE TO MAKE NEEDS KNOWN.
[2025-03-16 00:55] VITALS: BP 89/52
--- NOTE | 2025-03-16 04:41 | NUR ---
SHIFT SUMMARY ADMITTED FOR PNEUMONIA/SEPSIS. FULL CODE. IV ANTIB AND STEROIDS ARE SCHEDULED. HE IS A VA PATIENT. ADA/MINCED MOIST DIET (HE DISLIKES THIS DIET). TELEMETRY: NSR @81 BPM W/PAC'S. A&O X4, STANDBY ASSIST W/FWW. 4 LPM O2 VIA NC IS HIS BASELINE. HE IS ON ELIQUIS. HE USES A CPAP @ HS. BLOOD CULTURES WERE POSITIVE. HX: COPD, CHF, ASTHMA. NO NEW CONCERNS THIS SHIFT.
[2025-03-16 05:23] LABS: BASOPHILS ABSOLUTE AUTO 0.01 K/mm3 (0.00-0.23); BASOPHILS PERCENT AUTO 0 % (0-2); EOSINOPHILS ABSOLUTE AUTO 0.00 K/mm3 (0.00-0.68); EOSINOPHILS PERCENT AUTO 0 % (0-6); Hematocrit 35.0 % (37.0-53.0); Hemoglobin 11.0 g/dL (13.5-17.5); IMMATURE GRAN ABSOLUTE AUTO 0.10 K/mm3 (0.00-0.10); IMMATURE GRAN PERCENT AUTO 1 % (0-1); LYMPHOCYTES ABSOLUTE AUTO 0.25 K/mm3 (0.84-5.20); LYMPHOCYTES PERCENT AUTO 2 % (21-46); MONOCYTES ABSOLUTE AUTO 0.28 K/mm3 (0.16-1.47); MONOCYTES PERCENT AUTO 2 % (4-13); Mean Corpuscular HGB Conc 31.4 g/dL (31.5-36.5); Mean Corpuscular Volume 92 fL (80-100); NEUTROPHILS ABSOLUTE AUTO 11.00 K/mm3 (1.96-9.15); NEUTROPHILS PERCENT AUTO 95 % (41-73); NRBC ABSOLUTE 0.00 K/mm3 (0.00-0.02); NRBC Auto 0.0 /100 WBC (0.0-0.2); Platelet Count 166 K/mm3 (150-400); RDW Coefficient Variation 15.9 % (11.7-14.2); RDW Standard Deviation 53.8 fL (35.1-46.3)
[2025-03-16 05:39] VITALS: BP 96/55
[2025-03-16 06:05] LABS: Alanine Aminotransfer (ALT/SGP 18.0 U/L (12-78); Albumin, Blood 2.5 g/dL (3.4-5.0); Albumin/Globulin Ratio 0.8 (0.8-1.8); Anion Gap 7.0 mmol/L (3-11); Aspartate Aminotrans (AST/SGOT 7.0 U/L (12-37); Bilirubin, Total 0.3 mg/dL (0.1-1.0); Blood Urea Nitrogen 15.0 mg/dL (8-24); CO2, Blood 27.0 mmol/L (21-32); Calcium, Blood 7.8 mg/dL (8.5-10.1); Chloride, Blood 111.0 mmol/L (98-108); Creatinine, Blood 0.66 mg/dL (0.60-1.20); Globulin, Blood 3.2 g/dL (2.2-4.0); Glucose, Blood 204.0 mg/dL (70-99); Potassium, Blood 4.0 mmol/L (3.5-5.5); Sodium, Blood 141.0 mmol/L (136-145); Total Protein, Blood 5.7 g/dL (6.4-8.2)
[2025-03-16 07:26] VITALS: BP 113/63
[2025-03-16 11:23] VITALS: BP 109/69
[2025-03-16] MEDS ORDERED: CefTRIAXone Sodium 2,000 MG in NS 100 ML IV SCH (12:00)
[2025-03-16 16:58] VITALS: BP 111/68
--- NOTE | 2025-03-16 17:28 | NUR ---
SHIFT SUMMARY PT HAD REPEAT CHEST X RAY THIS SHIFT, IMPROVED FROM LAST X RAY, SEE IMAGING. IV ABX INFUSED PER ORDER. NO OTHER ACUTE CHANGES. CALL LIGHT WITHIN REACH AND PT ABLE TO MAKE NEEDS KNOWN.
[2025-03-16 19:24] VITALS: BP 127/70
[2025-03-17 01:02] VITALS: BP 113/66
[2025-03-17 03:58] VITALS: BP 122/73
--- NOTE | 2025-03-17 04:10 | NUR ---
SHIFT SUMMARY PATIENT HAD NO ACUTE CHANGES. ALERT ORIENTED AND SBA W/FWW TO BR. USES URINAL AT [place]. DENIES CHEST PAIN, SOB, AND N/V. VSS/AFEBRILE. ON 4L 02 NC AND BASELINE. TELE MONITOR NSR 71 W/BBB. USES CPAP AT NIGHT WITH 4L O2 BLEED. RT IN FOR BREATHING TX. COOPERATIVE WITH CARE. CALL LIGHT IN REACH. BED IN LOWEST POSITION. WILL CONTINUE TO MONITOR UNTIL DAY SHIFT NURSE ASSUMES CARE.
[2025-03-17 04:52] LABS: BASOPHILS ABSOLUTE AUTO 0.01 K/mm3 (0.00-0.23); BASOPHILS PERCENT AUTO 0 % (0-2); EOSINOPHILS ABSOLUTE AUTO 0.00 K/mm3 (0.00-0.68); EOSINOPHILS PERCENT AUTO 0 % (0-6); Hematocrit 36.7 % (37.0-53.0); Hemoglobin 11.8 g/dL (13.5-17.5); IMMATURE GRAN ABSOLUTE AUTO 0.09 K/mm3 (0.00-0.10); IMMATURE GRAN PERCENT AUTO 1 % (0-1); LYMPHOCYTES ABSOLUTE AUTO 0.59 K/mm3 (0.84-5.20); LYMPHOCYTES PERCENT AUTO 5 % (21-46); MONOCYTES ABSOLUTE AUTO 0.39 K/mm3 (0.16-1.47); MONOCYTES PERCENT AUTO 3 % (4-13); Mean Corpuscular HGB Conc 32.2 g/dL (31.5-36.5); Mean Corpuscular Volume 91 fL (80-100); NEUTROPHILS ABSOLUTE AUTO 10.59 K/mm3 (1.96-9.15); NEUTROPHILS PERCENT AUTO 91 % (41-73); NRBC ABSOLUTE 0.00 K/mm3 (0.00-0.02); NRBC Auto 0.0 /100 WBC (0.0-0.2); Platelet Count 179 K/mm3 (150-400); RDW Coefficient Variation 15.9 % (11.7-14.2); RDW Standard Deviation 53.2 fL (35.1-46.3)
[2025-03-17 05:10] LABS: Anion Gap 5.0 mmol/L (3-11); Blood Urea Nitrogen 17.0 mg/dL (8-24); CO2, Blood 30.0 mmol/L (21-32); Calcium, Blood 8.7 mg/dL (8.5-10.1); Chloride, Blood 106.0 mmol/L (98-108); Creatinine, Blood 0.72 mg/dL (0.60-1.20); Glucose, Blood 126.0 mg/dL (70-99); Potassium, Blood 3.6 mmol/L (3.5-5.5); Sodium, Blood 137.0 mmol/L (136-145)
[2025-03-17 08:03] VITALS: BP 116/62
[2025-03-17 10:22] VITALS: BP 120/76
[2025-03-17 16:04] VITALS: BP 118/67
--- NOTE | 2025-03-17 17:24 | NUR ---
A&O4. PLEASANT AND COOPERATIVE WITH CARE. CALLS APPROPRIATELY AND IS ABLE TO ADVOCATE NEEDS EFFECTIVELY. CONTINENT OF BOWEL AND BLADDER. USES THE URNIAL INDEPENDENTLY TO VOID. AMBULATES WITH 1 PER AST. DENIES ANY PAIN OR DISCOMFORT. TELE IN PLACE NO NEW SHIFT EVENTS. BED IN LOWEST POSITION, CALL LIGHT WITHIN REACH, ALL NEEDS MET.
[2025-03-17 19:34] VITALS: BP 111/62
[2025-03-18] VITALS: BP 99/52
--- NOTE | 2025-03-18 01:08 | NUR ---
Tums Order Pt c/o indigestion and sitting on the edge of the bed requesting for tums. Called and received an order from Dr. Silvio Keller to give 500mg PO tums q4h prn for indigestion. Orders updated.
[2025-03-18 04:03] VITALS: BP 109/68
--- NOTE | 2025-03-18 04:11 | NUR ---
SHIFT SUMMARY PATIENT HAD NO ACUTE CHANGES. ALERT ORIENTED AND SBA W/FWW. DENIES CHEST PAIN, SOB, AND N/V. VSS/AFEBRILE. PIV INTACT. TELE MONITOR NSR 79 W/BBB. ON 4L O2 N/C BASELINE. USES HOME CPAP AT NIGHT. TUMS ORDERED FOR ACID REFLUX X ONE AND GIVEN. RT IN FOR BREATHING TX AND VEST THERAPY. CALL LIGHT IN REACH. BED IN LOWEST POSITION. WILL CONTINUE TO MONITOR UNTIL DAY SHIFT NURSE ASSUMES CARE.
[2025-03-18 04:59] LABS: BASOPHILS ABSOLUTE AUTO 0.00 K/mm3 (0.00-0.23); BASOPHILS PERCENT AUTO 0 % (0-2); EOSINOPHILS ABSOLUTE AUTO 0.02 K/mm3 (0.00-0.68); EOSINOPHILS PERCENT AUTO 0 % (0-6); Hematocrit 34.7 % (37.0-53.0); Hemoglobin 10.9 g/dL (13.5-17.5); IMMATURE GRAN ABSOLUTE AUTO 0.06 K/mm3 (0.00-0.10); IMMATURE GRAN PERCENT AUTO 1 % (0-1); LYMPHOCYTES ABSOLUTE AUTO 0.73 K/mm3 (0.84-5.20); LYMPHOCYTES PERCENT AUTO 11 % (21-46); MONOCYTES ABSOLUTE AUTO 0.43 K/mm3 (0.16-1.47); MONOCYTES PERCENT AUTO 7 % (4-13); Mean Corpuscular HGB Conc 31.4 g/dL (31.5-36.5); Mean Corpuscular Volume 91 fL (80-100); NEUTROPHILS ABSOLUTE AUTO 5.18 K/mm3 (1.96-9.15); NEUTROPHILS PERCENT AUTO 81 % (41-73); NRBC ABSOLUTE 0.00 K/mm3 (0.00-0.02); NRBC Auto 0.0 /100 WBC (0.0-0.2); Platelet Count 156 K/mm3 (150-400); RDW Coefficient Variation 15.7 % (11.7-14.2); RDW Standard Deviation 52.2 fL (35.1-46.3)
[2025-03-18 05:40] LABS: Anion Gap 6.0 mmol/L (3-11); Blood Urea Nitrogen 21.0 mg/dL (8-24); CO2, Blood 33.0 mmol/L (21-32); Calcium, Blood 8.3 mg/dL (8.5-10.1); Chloride, Blood 104.0 mmol/L (98-108); Creatinine, Blood 0.72 mg/dL (0.60-1.20); Glucose, Blood 104.0 mg/dL (70-99); Potassium, Blood 3.6 mmol/L (3.5-5.5); Sodium, Blood 139.0 mmol/L (136-145)
[2025-03-18 07:13] VITALS: BP 131/76
[2025-03-18 08:30] VITALS: BP 125/74
[2025-03-18 11:04] VITALS: BP 126/84
[2025-03-18] MEDS ORDERED: CEFP200 PO (11:11)
--- NOTE | 2025-03-18 13:30 | NUR ---
1310 discharged home with . patient has his own portable oxygen tank with him
[2025-03-21] MEDS ORDERED: BUPRENORPHINE 7.5 MCG TOP SCH (09:00)
== END 2025-03-18 13:19 | disposition home health service (06) | DRG 871 ==
LOC: ER 11:29 → MEDS 15:07
PROVIDERS: Emergency Medicine; Physician Assistant; Registered Nurse; Student in an Organized Health Care Education/Training Program; ADMIT Internal Medicine
DX: A41.9 Sepsis, unspecified organism (principal); J18.9 Pneumonia, unspecified organism; J96.20 Acute and chronic respiratory failure, unspecified whether with hypoxia or hypercapnia; I50.32 Chronic diastolic (congestive) heart failure; J44.1 Chronic obstructive pulmonary disease with (acute) exacerbation; J44.0 Chronic obstructive pulmonary disease with (acute) lower respiratory infection; E87.3 Alkalosis; N40.0 Benign prostatic hyperplasia without lower urinary tract symptoms; E11.9 Type 2 diabetes mellitus without complications; K21.9 Gastro-esophageal reflux disease without esophagitis; I48.91 Unspecified atrial fibrillation; T36.1X6A Underdosing of cephalosporins and other beta-lactam antibiotics, initial encounter; B96.89 Other specified bacterial agents as the cause of diseases classified elsewhere; I25.10 Atherosclerotic heart disease of native coronary artery without angina pectoris; E66.9 Obesity, unspecified; Z98.84 Bariatric surgery status; Z85.46 Personal history of malignant neoplasm of prostate; Z99.81 Dependence on supplemental oxygen; Z91.138 Patient's unintentional underdosing of medication regimen for other reason; Z88.8 Allergy status to other drugs, medicaments and biological substances; Z88.5 Allergy status to narcotic agent; Z79.51 Long term (current) use of inhaled steroids; Z79.52 Long term (current) use of systemic steroids; Z92.3 Personal history of irradiation; Z87.891 Personal history of nicotine dependence; Z68.32 Body mass index [BMI] 32.0-32.9, adult
CPT/HCPCS: 36415; 71045; 80048; 80053; 82803; 82947; 83605; 84484; 85025; 87040; 87070; 87077; 87186; 87205; 87637; 93005; 93010; 94640; 94664; 94667; 94668; 94762; 96365; 97116; 97161; 99285-25; A9270; J0696; J2543; J2919; J3373; J3420; J7030; J7040; J7050; J7120; J7512

== ENCOUNTER 2025-09-03 18:59 | Inpatient (IN) | payer OTHER, MEDICARE ==
[~2025-09-03] VITALS: Ht 172.7 cm; Wt 94.6 kg
[~2025-09-03 18:59] MED LIST changes: -BUTRANS TD; +BUTRANS1 EAC5 TD; +CEFUROXIME SOD1.5 GM; +ELIQUIS5 M2 PO; +TOLTERODINE TART4 MG PO
[2025-09-03] MEDS ORDERED: Ipratropium/Albuterol SulF 2.5-0.5MG/3 ML Amp INH PRN (19:15)
[2025-09-03 19:24] LABS: BASOPHILS ABSOLUTE AUTO 0.04 K/mm3 (0.00-0.23); BASOPHILS PERCENT AUTO 0 % (0-2); EOSINOPHILS ABSOLUTE AUTO 0.00 K/mm3 (0.00-0.68); EOSINOPHILS PERCENT AUTO 0 % (0-6); Hematocrit 43.1 % (37.0-53.0); Hemoglobin 14.4 g/dL (13.5-17.5); IMMATURE GRAN ABSOLUTE AUTO 0.09 K/mm3 (0.00-0.10); IMMATURE GRAN PERCENT AUTO 1 % (0-1); LYMPHOCYTES ABSOLUTE AUTO 0.41 K/mm3 (0.84-5.20); LYMPHOCYTES PERCENT AUTO 3 % (21-46); MONOCYTES ABSOLUTE AUTO 0.49 K/mm3 (0.16-1.47); MONOCYTES PERCENT AUTO 3 % (4-13); Mean Corpuscular HGB Conc 33.4 g/dL (31.5-36.5); Mean Corpuscular Volume 91 fL (80-100); NEUTROPHILS ABSOLUTE AUTO 14.56 K/mm3 (1.96-9.15); NEUTROPHILS PERCENT AUTO 93 % (41-73); NRBC ABSOLUTE 0.00 K/mm3 (0.00-0.02); NRBC Auto 0.0 /100 WBC (0.0-0.2); Platelet Count 211 K/mm3 (150-400); RDW Coefficient Variation 14.1 % (11.7-14.2); RDW Standard Deviation 47.4 fL (35.1-46.3)
[2025-09-03 19:59] LABS: Alanine Aminotransfer (ALT/SGP 29.0 U/L (12-78); Albumin, Blood 3.7 g/dL (3.4-5.0); Albumin/Globulin Ratio 1.1 (0.8-1.8); Anion Gap 11.0 mmol/L (3-11); Aspartate Aminotrans (AST/SGOT 12.0 U/L (12-37); Bilirubin, Total 1.2 mg/dL (0.1-1.0); Blood Urea Nitrogen 16.0 mg/dL (8-24); CO2, Blood 27.0 mmol/L (21-32); Calcium, Blood 8.7 mg/dL (8.5-10.1); Chloride, Blood 101.0 mmol/L (98-108); Creatinine, Blood 0.83 mg/dL (0.60-1.20); Globulin, Blood 3.3 g/dL (2.2-4.0); Glucose, Blood 185.0 mg/dL (70-99); Potassium, Blood 4.0 mmol/L (3.5-5.5); Sodium, Blood 135.0 mmol/L (136-145); Total Protein, Blood 7.0 g/dL (6.4-8.2)
[2025-09-03] MEDS ORDERED: Albuterol 2.5 MG/3 ML VIAL INH SCH (20:00)
[2025-09-03] MEDS ORDERED: Magnesium Sulf 2 GM/Water 50ML 50 ML IV ONE (20:00)
[2025-09-03] MEDS ORDERED: CefTRIAXone Sodium 2,000 MG in NS 100 ML IV ONE (20:30)
[2025-09-03 20:54] LABS: pH Blood Venous 7.33 (7.34-7.37)
[2025-09-03 21:10] LABS: Influenza A, PCR NEGATIVE (NEGATIVE); Influenza B, PCR NEGATIVE (NEGATIVE); Resp Syncytial Virus, PCR NEGATIVE (NEGATIVE); SARS-Cov-2 (COVID-19) PCR, MMC NEGATIVE (NEGATIVE)
[2025-09-03] MEDS ORDERED: FLU VACC TS2025(65UP)/MF59C/PF 45 MCG/0.5 ML SYRINGE IM SCH (21:10)
[2025-09-03] MEDS ORDERED: Albuterol 2.5 MG/3 ML VIAL INH PRN (21:10)
[2025-09-03] MEDS ORDERED: Ondansetron HCl 2 MG / ML 2ML Vial IV PRN (21:15)
[2025-09-03] MEDS ORDERED: Morphine Sulfate 4 MG/1 ML Injection IV PRN (21:55)
[2025-09-03] MEDS ORDERED: Ipratropium/Albuterol SulF 2.5-0.5MG/3 ML Amp INH SCH (22:00)
[2025-09-03] MEDS ORDERED: Ketorolac Tromethamine 15mg Vial IV ONE (22:00)
[2025-09-04 00:13] LABS: pH Blood Venous 7.31 (7.34-7.37)
[2025-09-04 00:54] VITALS: BP 99/72
[2025-09-04] MEDS ORDERED: Morphine Sulfate 4 MG/1 ML Injection IV PRN (01:50)
[2025-09-04] MEDS ORDERED: Voltaren100 GM TOP ×2 (03:21)
[2025-09-04] MEDS ORDERED: LIDO700A20 TOP ×2 (03:23)
[2025-09-04] MEDS ORDERED: MIRABEGRON ER50 MG PO ×2 (03:25)
[2025-09-04] MEDS ORDERED: TRAM50 PO ×2 (03:27)
[2025-09-04 04:21] LABS: Hematocrit 44.1 % (37.0-53.0); Hemoglobin 14.6 g/dL (13.5-17.5); Mean Corpuscular HGB Conc 33.1 g/dL (31.5-36.5); Mean Corpuscular Volume 92 fL (80-100); NRBC ABSOLUTE 0.00 K/mm3 (0.00-0.02); NRBC Auto 0.0 /100 WBC (0.0-0.2); Platelet Count 192 K/mm3 (150-400); RDW Coefficient Variation 14.4 % (11.7-14.2); RDW Standard Deviation 48.7 fL (35.1-46.3)
[2025-09-04 04:23] VITALS: BP 118/70
[2025-09-04 04:37] LABS: Alanine Aminotransfer (ALT/SGP 23.0 U/L (12-78); Albumin, Blood 3.3 g/dL (3.4-5.0); Albumin/Globulin Ratio 1.0 (0.8-1.8); Anion Gap 12.0 mmol/L (3-11); Aspartate Aminotrans (AST/SGOT 8.0 U/L (12-37); Bilirubin, Total 1.2 mg/dL (0.1-1.0); Blood Urea Nitrogen 20.0 mg/dL (8-24); CO2, Blood 28.0 mmol/L (21-32); Calcium, Blood 8.2 mg/dL (8.5-10.1); Chloride, Blood 103.0 mmol/L (98-108); Creatinine, Blood 0.93 mg/dL (0.60-1.20); Globulin, Blood 3.3 g/dL (2.2-4.0); Glucose, Blood 168.0 mg/dL (70-99); Magnesium, Blood 2.5 mg/dL (1.6-2.4); Potassium, Blood 3.8 mmol/L (3.5-5.5); Sodium, Blood 139.0 mmol/L (136-145); Total Protein, Blood 6.6 g/dL (6.4-8.2)
[2025-09-04 04:43] LABS: BAND PERCENT MAN 21 % (0-8); BASOPHILS ABSOLUTE MAN 0.00 K/mm3 (0.00-0.23); BASOPHILS PERCENT MAN 0 % (0-2); EOSINOPHILS ABSOLUTE MAN 0.00 K/mm3 (0.00-0.68); EOSINOPHILS PERCENT MAN 0 % (0-6); LYMPHOCYTES ABSOLUTE MAN 0.43 K/mm3 (0.84-5.20); LYMPHOCYTES PERCENT MAN 4 % (21-46); METAMYELOCYTE ABSOLUTE MAN 0.10 K/mm3 (0.00-0.00); METAMYELOCYTE PERCENT MAN 1 % (0-0); MONOCYTES ABSOLUTE MAN 0.54 K/mm3 (0.16-1.47); MONOCYTES PERCENT MAN 5 % (4-13); NEUTROPHILS ABSOLUTE MAN 9.77 K/mm3 (1.96-9.15); SEG NEUTROPHILS PERCENT MAN 69 % (41-73)
--- NOTE | 2025-09-04 07:00 | NUR ---
REPORT RECEIVED FROM FILENET ADMIN NURSE. PT IS A&Ox4 AND ABLE TO MAKE NEEDS KNOWN. HE IS ON 6LNC W/O2 SATS > 90%. HE IS A SBA TO USE THE URINAL. NO OTHER NEEDS OR CONCERNS NOTED @ THIS TIME. BED IN LOW POSITION, BED ALARM ON, CALL LIGHT AND PERSONAL BELONGINGS IN REACH.
--- NOTE | 2025-09-04 07:47 | NUR ---
ADMIT/SHIFT SUMMARY: PT ARRIVES TO PCU 3 FROM ER VIA GURNEY AT 0043. PT WAS A STAND PIVOT X1 TO THE HOSPITAL BED. PT IS DYSPNEIC WITH ANY EXERTION. PT ORIENTED TO ROOM, STAFF AND CALL LIGHT. PT IS A&OX4, VERY [place], HE STATES HIS WILL BRING IN HIS BILAT HEARING AIDES TODAY. HE IS COOPERATIVE WITH CARE. VSS ON 8L HFNC SATTING 88-91%. THIS RN WAS ABLE TO TITRATE HIS OXYGEN DOWN TO 6L OXYGEN HFNC, HE DID WEAR BIPAP LATER THIS MORNING. PT DOES HAVE A PRODUCTIVE COUGH, WITH THICK, PINK TINGED PHLEGM. HE HAS BEEN SR-ST 90'S-110'S THIS SHIFT. C/O 8/10 PAIN TO HIS BACK THAT RADIATES TO HIS SHOULDER BLADES, PAIN INCREASES WHEN HE IS COUGHING. HE IS ON A PUREED DIET, BUT DOES ADMIT HE HAS NOT BEEN COMPLIANT WITH THIS AT HOME. THIS RN ALSO GAVE HIM NECTAR THICK LIQUIDS. PT DOES HAVE UPPER DENTURES, BUT DOES NOT WEAR THEM D/T A POOR FIT. PT STATES HE USES A FWW/CANE AT BASELINE AT HOME TO AMBULATE. X1 ASSIST WITH URINAL AT BEDSIDE. PT VOIDING SMALL AMOUNTS OF KISHOR COLORED URINE. PT IS INCONTINENT/CONTINENT AND HAS URGENCY, PULL-UP IN PLACE. NO BM THIS SHIFT. BED IN LOWEST POSITION, CALL LIGHT WITHIN REACH. PT STATES HE HAS BEEN FALLING AT HOME, BED ALARM SET FOR PT'S SAFETY.
[2025-09-04 08:16] VITALS: BP 121/67
[2025-09-04] MEDS ORDERED: Lactobacil 2-S.Thermo-Bifido 1 1 Cap PO SCH (09:00)
[2025-09-04 12:19] VITALS: BP 97/58
[2025-09-04 15:54] VITALS: BP 107/622
--- NOTE | 2025-09-04 16:31 | NUR ---
PT AND BOTH PRESENT IN THE ROOM. THE PATIENT STATES HE IS NOT READY TO DISCUSS HOSPICE, AND WANTS TO CONTINUE BEING TREATED FOR ASPIRATION PNEUMONIA. PT'S MOTHER IN LAW JUST ON HOSPICE APPROXIMATELY 4 MONTHS AGO, AND HE STATES HE DOES NOT WANT TO PUT HIS THROUGH IT. HE IS VERY PLEASANT, AND SURE ABOUT HIS DECISION.
--- NOTE | 2025-09-04 18:23 | NUR ---
NO ACUTE EVENTS THIS SHIFT. PT REMAINS A&Ox4 AND ABLE TO MAKE NEEDS KNOWN. HE IS ON 6LNC W/O2 SATS > 90%. NO NEEDS OR CONCERNS NOTED @ THIS TIME. BED IN LOW POSITION, BED ALARM ON, CALL LIGHT AND PERSONAL BELONGINGS IN REACH.
[2025-09-04 19:58] VITALS: BP 107/62; BP 128/67
[2025-09-04] MEDS ORDERED: CefTRIAXone Sodium 1,000 MG in NS 100 ML IV SCH (21:00)
--- NOTE | 2025-09-04 21:00 | NUR ---
ASSUMED CARE OF PATIENT AT 1900. PATIENT A/O X 4, ANSWERS QUESTIONS APPROPRIATELY AND FOLLOWS COMMANDS. SINUS RHYTHM/SINUS TACH 90-100s. SBP 120s, MAP >65. PATIENT DENIES CHEST PAIN, PRESSURE, OR PALPITATIONS. SATS 90-92% ON 6L NC, NO S/sx OF RESPIRATORY DISTRESS. ALL OTHER VSS. ABDOMEN IS ROUND, FIRM, AND NONTENDER. 2+ PITTING EDEMA TO BLE. PATIENT ENDORSES BACK/SHOULDER PAIN 8/10, TREATED PER EMAR AND REPOSITIONED. PATIENT RESTING COMFORTABLY IN ROOM. BED LOCKED IN LOWEST POSITION, CALL LIGHT WITHIN REACH.
--- NOTE | 2025-09-04 21:01 | NUR ---
ASSUMED CARE OF PATIENT AT 1900. PATIENT SLEEPING BUT EASILT AWOKE FOR ASSESSMENT. PATIENT A/O X 4, ANSWERSE QUESTIONS APPROPRIATELY AND FOLLOWS COMMONDS. AFIB 100-120s AT REST. HR INCREASED TO >150s BRIEFLY WHEN AMBULATING TO BATHROOM PATIENT DENIES CHEST PAIN, PRESSURE, OR PALPITATIONS. SBP 100s, MAP >65. SATS >92% ON ROOM AIR, LUNG SOUNDS CLEAR T/O. ALL OTHER VSS. TRACE EDEMA IN BLE. CLEAN CATCH URINE SAMPLE COLLECTED AT THIS TIME. PATIENT RESTING COMFORTABLY IN ROOM. BED LOCKED IN LOWEST POSITION, CALL LIGHT WITHIN REACH. BED ALARM ON FOR PATIENT SAFETY.
--- NOTE | 2025-09-04 21:05 | NUR ---
2044- TELE CALLED TO NOTIFY OF 7 BEAT RUN OF VTACH. CALL PLACED TO MD CM, ORDERS TO CONTINUE CARE PLAN AND NOTIFY IF VTACH RECURDS. NO CHANGES AT THIS TIME.
[2025-09-05] VITALS: BP 119/64
[2025-09-05 03:47] VITALS: BP 93/56
--- NOTE | 2025-09-05 05:19 | NUR ---
SHIFT SUMMARY PATIENT REMAINS A/O X 4 AND COOPERATIVE WITH CARE, NO ACUTE NEURO SYMPTOMS. PATIENT CONVERTED TO AFIB AT APPROXIMATELY 0300, HR 80-90s, ASYMPTOMATIC. SATS >88% USING BIPAP AT NIGHT. BACK/SHOULDER PAIN MANAGED WITH TYLENOL AND MORPHINE, SEE EMAR. NO ACUTE EVENTS THIS SHIFT. PATIENT RESTING COMFORTABLY IN ROOM. BED LOCKED ON LOWEST POSITION, CALL LIGHT WITHIN REACH. BED ALARM ON FOR PATIENT SAFETY.
[2025-09-05 05:26] LABS: Hematocrit 41.2 % (37.0-53.0); Hemoglobin 13.5 g/dL (13.5-17.5); Mean Corpuscular HGB Conc 32.8 g/dL (31.5-36.5); Mean Corpuscular Volume 93 fL (80-100); NRBC ABSOLUTE 0.00 K/mm3 (0.00-0.02); NRBC Auto 0.0 /100 WBC (0.0-0.2); Platelet Count 154 K/mm3 (150-400); RDW Coefficient Variation 14.4 % (11.7-14.2); RDW Standard Deviation 49.4 fL (35.1-46.3)
[2025-09-05 05:44] LABS: Alanine Aminotransfer (ALT/SGP 20.0 U/L (12-78); Albumin, Blood 2.9 g/dL (3.4-5.0); Albumin/Globulin Ratio 0.9 (0.8-1.8); Anion Gap 8.0 mmol/L (3-11); Aspartate Aminotrans (AST/SGOT 8.0 U/L (12-37); Bilirubin, Total 0.5 mg/dL (0.1-1.0); Blood Urea Nitrogen 32.0 mg/dL (8-24); CO2, Blood 30.0 mmol/L (21-32); Calcium, Blood 8.4 mg/dL (8.5-10.1); Chloride, Blood 100.0 mmol/L (98-108); Creatinine, Blood 0.8 mg/dL (0.60-1.20); Globulin, Blood 3.3 g/dL (2.2-4.0); Glucose, Blood 172.0 mg/dL (70-99); Magnesium, Blood 2.6 mg/dL (1.6-2.4); Potassium, Blood 4.3 mmol/L (3.5-5.5); Sodium, Blood 134.0 mmol/L (136-145); Total Protein, Blood 6.2 g/dL (6.4-8.2)
[2025-09-05 05:55] LABS: BAND PERCENT MAN 60 % (0-8); BASOPHILS ABSOLUTE MAN 0.00 K/mm3 (0.00-0.23); BASOPHILS PERCENT MAN 0 % (0-2); EOSINOPHILS ABSOLUTE MAN 0.00 K/mm3 (0.00-0.68); EOSINOPHILS PERCENT MAN 0 % (0-6); LYMPHOCYTES ABSOLUTE MAN 0.30 K/mm3 (0.84-5.20); LYMPHOCYTES PERCENT MAN 3 % (21-46); MONOCYTES ABSOLUTE MAN 0.40 K/mm3 (0.16-1.47); MONOCYTES PERCENT MAN 4 % (4-13); MYELOCYTE ABSOLUTE MAN 0.30 K/mm3 (0.00-0.00); MYELOCYTE PERCENT MAN 3 % (0-0); NEUTROPHILS ABSOLUTE MAN 9.14 K/mm3 (1.96-9.15); SEG NEUTROPHILS PERCENT MAN 30 % (41-73)
[2025-09-05 07:51] VITALS: BP 112/68
--- NOTE | 2025-09-05 09:37 | NUR ---
REPORT RECEIVED FROM DRESSMAKING TEACHER NURSE. PT IS A&Ox4 AND ABLE TO MAKE NEEDS KNOWN. HE IS ON 6LNC W/O2 SATS >92%. USES URINAL W/SBA. NO NEEDS OR CONCERNS NOTED @ THIS TIME. BED IN LOW POSITION, BED ALARM ON, CALL LIGHT AND PERSONAL BELONGINGS IN REACH.
[2025-09-05 11:29] VITALS: BP 108/64
--- NOTE | 2025-09-05 18:40 | NUR ---
PT SITTING UP IN BED WATCHING TV. NO ACUTE EVENTS THIS SHIFT. BED IN LOW POSITION, BED ALARM ON, CALL LIGHT AND PERSONAL BELONGINGS IN REACH.
[2025-09-05 19:27] VITALS: BP 94/63
[2025-09-06 00:03] VITALS: BP 97/51
--- NOTE | 2025-09-06 02:56 | NUR ---
PT MOVED TO ROOM 210 REPORT GIVEN TO ELINOR BEAL.
[2025-09-06 04:52] VITALS: BP 105/46
--- NOTE | 2025-09-06 04:55 | NUR ---
NOC SUMMARY- PT ARRIVED TO ROOM IN NO DISTRESS. PT REMAINS ON 5 LPM O2. PT IS SLEEPING WITH CPAP. PT BACK PAIN MANAGED WELL. PT IS VOIDING WELL. PT SPO2>90%. PT HAS BEEN RESTING COMFORTABLY.
[2025-09-06 05:38] LABS: Hematocrit 40.3 % (37.0-53.0); Hemoglobin 13.2 g/dL (13.5-17.5); Mean Corpuscular HGB Conc 32.8 g/dL (31.5-36.5); Mean Corpuscular Volume 93 fL (80-100); NRBC ABSOLUTE 0.00 K/mm3 (0.00-0.02); NRBC Auto 0.0 /100 WBC (0.0-0.2); Platelet Count 177 K/mm3 (150-400); RDW Coefficient Variation 14.0 % (11.7-14.2); RDW Standard Deviation 47.5 fL (35.1-46.3)
[2025-09-06 06:17] LABS: BAND PERCENT MAN 28 % (0-8); BASOPHILS ABSOLUTE MAN 0.00 K/mm3 (0.00-0.23); BASOPHILS PERCENT MAN 0 % (0-2); EOSINOPHILS ABSOLUTE MAN 0.00 K/mm3 (0.00-0.68); EOSINOPHILS PERCENT MAN 0 % (0-6); LYMPHOCYTES ABSOLUTE MAN 0.25 K/mm3 (0.84-5.20); LYMPHOCYTES PERCENT MAN 2 % (21-46); METAMYELOCYTE ABSOLUTE MAN 0.25 K/mm3 (0.00-0.00); METAMYELOCYTE PERCENT MAN 2 % (0-0); MONOCYTES ABSOLUTE MAN 0.37 K/mm3 (0.16-1.47); MONOCYTES PERCENT MAN 3 % (4-13); NEUTROPHILS ABSOLUTE MAN 11.62 K/mm3 (1.96-9.15); SEG NEUTROPHILS PERCENT MAN 65 % (41-73)
[2025-09-06 06:19] LABS: Anion Gap 7.0 mmol/L (3-11); Blood Urea Nitrogen 42.0 mg/dL (8-24); CO2, Blood 31.0 mmol/L (21-32); Calcium, Blood 9.3 mg/dL (8.5-10.1); Chloride, Blood 100.0 mmol/L (98-108); Creatinine, Blood 0.76 mg/dL (0.60-1.20); Glucose, Blood 178.0 mg/dL (70-99); Potassium, Blood 4.5 mmol/L (3.5-5.5); Sodium, Blood 133.0 mmol/L (136-145)
[2025-09-06 07:10] VITALS: BP 101/58
[2025-09-06 15:26] VITALS: BP 109/66
[2025-09-06] MEDS ORDERED: Ipratropium/Albuterol SulF 2.5-0.5MG/3 ML Amp INH SCH (16:00)
--- NOTE | 2025-09-06 17:33 | NUR ---
SHIFT SUMMARY UP TO BEDSIDE MULTIPLE TIMES TODAY, AND PT IS COMPLIANT WITH DIETARY RECCOMENDATIONS. DENIES COMPLAINTS. WILL CONTINUE TO MONITOR.
[2025-09-06 19:14] VITALS: BP 94/69
[2025-09-07] MEDS ORDERED: Morphine Sulfate 4 MG/1 ML Injection IV ONE (01:35)
--- NOTE | 2025-09-07 01:50 | NUR ---
0145- pt called and stated he was having 10/ 10 back pain after trying to turn over in bed. it was to soon for ordered pain med. dr mccain was called and ordered ot dose of pain med. pt reported pain is easeing up.
[2025-09-07 03:36] VITALS: BP 114/59
--- NOTE | 2025-09-07 04:46 | NUR ---
NOC SUMMARY- PT REPORTS BREATHING EASIER. PT STILL GET SOB W/ EXERTION. PT HAS REMAINED ON 5 LPM NC AND USES HIS CPAP WHILE SLEEPING. PT HAD A EPISODE OF INCREASE IN BACK PAIN WHILE REPOSITIONING IN BED. PT WAS TREATED WITH RELIEF. PT IS VOIDING WELL. PT HAS NO NEW ISSUES.
[2025-09-07 07:39] VITALS: BP 107/78
[2025-09-07] MEDS ORDERED: PRED20 PO (13:05)
[2025-09-07] MEDS ORDERED: DOXY100 PO (13:05)
[2025-09-07] MEDS ORDERED: SENNA LAXATIVE8.6 MG PO ×2 (13:06)
[2025-09-07] MEDS ORDERED: MIRALAX17 GM PO ×2 (13:06)
--- NOTE | 2025-09-07 15:14 | NUR ---
DISCHARGE SUMMARY: PATIENT A+O X4 AND HAS BEEN ABLE TO MAKE NEEDS KNOWN DURING THIS DAY. PATIENT MEDICATED TWICE FOR PAIN. SEE EMAR FOR DETAILS. LUNGS REMAIN DIMINISHED THROUGHOUT, HEART SOUNDS AUDIBLE. NO NEW OR ACUTE CHANGES. PATIENT'S IV REMOVED PRIOR TO DISCHARGE AND EDUCATION PROVIDED. PATIENT WHEELED OUT VIA W/C.
[2025-09-08] MEDS ORDERED: Vibramycin100 MG PO (13:08)
[2025-09-08] MEDS ORDERED: OXAYDO5 M8 PO (13:08)
[2025-09-08] MEDS ORDERED: Prednisone20 MG PO (13:08)
== END 2025-09-07 14:28 | disposition home health service (06) | DRG 871 ==
LOC: ER 18:59 → ERHOLD 21:09 → PCU 21:09 → SURS 09-06 02:54
PROVIDERS: Internal Medicine; Nurse Practitioner Acute Care; Physician Assistant; Student in an Organized Health Care Education/Training Program; ADMIT Internal Medicine
PROC: 5A09357 Assistance with Respiratory Ventilation, Less than 24 Consecutive Hours, Continuous Positive Airway Pressure (ICD-10-PCS; principal; 2025-09-03)
PROC: 3E03329 Introduction of Other Anti-infective into Peripheral Vein, Percutaneous Approach (ICD-10-PCS; 2025-09-03)
DX: A41.9 Sepsis, unspecified organism (principal); J18.9 Pneumonia, unspecified organism; J69.0 Pneumonitis due to inhalation of food and vomit; J96.21 Acute and chronic respiratory failure with hypoxia; J96.22 Acute and chronic respiratory failure with hypercapnia; I50.32 Chronic diastolic (congestive) heart failure; J44.0 Chronic obstructive pulmonary disease with (acute) lower respiratory infection; J44.1 Chronic obstructive pulmonary disease with (acute) exacerbation; I48.20 Chronic atrial fibrillation, unspecified; Z66 Do not resuscitate; R65.20 Severe sepsis without septic shock; N40.0 Benign prostatic hyperplasia without lower urinary tract symptoms; E66.9 Obesity, unspecified; I25.10 Atherosclerotic heart disease of native coronary artery without angina pectoris; E11.9 Type 2 diabetes mellitus without complications; K21.9 Gastro-esophageal reflux disease without esophagitis; J43.9 Emphysema, unspecified; Z99.81 Dependence on supplemental oxygen; Z88.8 Allergy status to other drugs, medicaments and biological substances; Z88.5 Allergy status to narcotic agent; Z87.01 Personal history of pneumonia (recurrent); Z79.01 Long term (current) use of anticoagulants; Z79.83 Long term (current) use of bisphosphonates; Z79.84 Long term (current) use of oral hypoglycemic drugs; Z98.84 Bariatric surgery status; Z85.46 Personal history of malignant neoplasm of prostate; Z87.891 Personal history of nicotine dependence; Z92.3 Personal history of irradiation; Z79.51 Long term (current) use of inhaled steroids; Z68.32 Body mass index [BMI] 32.0-32.9, adult
CPT/HCPCS: 36415; 71046; 80048; 80053; 82803; 83605; 83735; 83880; 84484; 85025; 87040; 87637; 92526; 92610; 93005; 93010; 94640; 94660; 94664; 94762; 96365; 96368; 97110; 97116; 97161; 99285-25; A9270; J0456; J0696; J1885; J2270; J2405; J2919; J3475; J7050; J7512

== ENCOUNTER 2025-09-08 07:20 | Emergency (ER) | payer OTHER ==
[~2025-09-08] VITALS: Ht 170.2 cm; Wt 106.6 kg
[~2025-09-08 07:20] MED LIST changes: +LIDO700A20 TOP; +MIRABEGRON ER50 MG PO; +SENNA LAXATIVE8.6 MG PO; +Voltaren100 GM TOP
[2025-09-08 07:47] LABS: pH Blood Venous 7.35 (7.34-7.37)
[2025-09-08 08:02] LABS: BASOPHILS ABSOLUTE AUTO 0.12 K/mm3 (0.00-0.23); BASOPHILS PERCENT AUTO 1 % (0-2); EOSINOPHILS ABSOLUTE AUTO 0.01 K/mm3 (0.00-0.68); EOSINOPHILS PERCENT AUTO 0 % (0-6); Hematocrit 39.9 % (37.0-53.0); Hemoglobin 13.1 g/dL (13.5-17.5); IMMATURE GRAN ABSOLUTE AUTO 0.90 K/mm3 (0.00-0.10); IMMATURE GRAN PERCENT AUTO 7 % (0-1); LYMPHOCYTES ABSOLUTE AUTO 0.65 K/mm3 (0.84-5.20); LYMPHOCYTES PERCENT AUTO 5 % (21-46); MONOCYTES ABSOLUTE AUTO 1.02 K/mm3 (0.16-1.47); MONOCYTES PERCENT AUTO 7 % (4-13); Mean Corpuscular HGB Conc 32.8 g/dL (31.5-36.5); Mean Corpuscular Volume 92 fL (80-100); NEUTROPHILS ABSOLUTE AUTO 11.04 K/mm3 (1.96-9.15); NEUTROPHILS PERCENT AUTO 80 % (41-73); NRBC ABSOLUTE 0.00 K/mm3 (0.00-0.02); NRBC Auto 0.0 /100 WBC (0.0-0.2); Platelet Count 191 K/mm3 (150-400); RDW Coefficient Variation 13.7 % (11.7-14.2); RDW Standard Deviation 46.9 fL (35.1-46.3)
[2025-09-08 08:21] LABS: Alanine Aminotransfer (ALT/SGP 24 U/L (12-78); Albumin, Blood 2.4 g/dL (3.4-5.0); Albumin/Globulin Ratio 0.7 (0.8-1.8); Anion Gap 7 mmol/L (3-11); Aspartate Aminotrans (AST/SGOT 16 U/L (12-37); Bilirubin, Total 0.6 mg/dL (0.1-1.0); Blood Urea Nitrogen 31 mg/dL (8-24); CO2, Blood 31 mmol/L (21-32); Calcium, Blood 8.6 mg/dL (8.5-10.1); Chloride, Blood 100 mmol/L (98-108); Creatinine, Blood 0.73 mg/dL (0.60-1.20); Globulin, Blood 3.6 g/dL (2.2-4.0); Glucose, Blood 151 mg/dL (70-99); Potassium, Blood 4.0 mmol/L (3.5-5.5); Sodium, Blood 134 mmol/L (136-145); Total Protein, Blood 6.0 g/dL (6.4-8.2)
[2025-09-08] MEDS ORDERED: Polyethylene Glycol 3350 17 gm PO ONE (10:00)
[2025-09-08] MEDS ORDERED: Vibramycin100 MG PO (13:08)
[2025-09-08] MEDS ORDERED: OXAYDO5 M8 PO (13:08)
[2025-09-08] MEDS ORDERED: Prednisone20 MG PO (13:08)
[2025-09-08 14:45] VITALS: BP 126/72
== END 2025-09-08 15:01 | disposition home or self-care (01) ==
LOC: ER 07:20
PROVIDERS: Emergency Medicine
DX: J44.0 Chronic obstructive pulmonary disease with (acute) lower respiratory infection (principal); J44.1 Chronic obstructive pulmonary disease with (acute) exacerbation; J18.9 Pneumonia, unspecified organism; Z88.5 Allergy status to narcotic agent; Z79.899 Other long term (current) drug therapy; Z79.01 Long term (current) use of anticoagulants; E11.9 Type 2 diabetes mellitus without complications; I11.0 Hypertensive heart disease with heart failure; I48.91 Unspecified atrial fibrillation
CPT/HCPCS: 71045; 80053; 82803; 84484; 85025; 93005; 93010; 99285-25; A9270